=== PATIENT | male | born 1960 ===

== ENCOUNTER 2016-02-07 14:10 | Inpatient (IN) | payer MEDICARE, OTHER ==
--- NOTE | 2016-02-07 18:33 | NUR ---
Observations from [id number] Pt arrived via EMS and was escorted to the unit on a stretcher in restraints at 1630. EMS noted he can get escalate very quickly so be sure to stay aware of that when in his vicinity. He verbally contracted for safety for himself and others so we let him out of restraints but pt was not able to complete his admit. When orienting him to the unit, he mentioned he "hates doctors and medication but i hate injections the most". He was reassured that if he takes his meds and doesn't present as a harm to himself or others, we shouldn't have to give him a shot and he understood that if he wasn't compliant or harassing others there is a chance it could happen. Pt showered after some encouragement from staff, ate all of his dinner and fell asleep shortly after eating. Pt has been observed every 15 minutes as directed. Addendum: 02/07/16 at 2 by CHEO LAWSON Observations were from [id number]
[2016-02-07] MEDS ORDERED: DIVA250T12 PO (18:43)
[2016-02-07] MEDS ORDERED: HYDR-4003 PO (18:43)
[2016-02-07] MEDS ORDERED: DIVA500T14 PO (18:43)
[2016-02-07] MEDS ORDERED: KLO1T PO (18:43)
[2016-02-07] MEDS ORDERED: RISP4TAB2 PO (18:43)
[2016-02-07] MEDS ORDERED: TRAZ-118 PO (18:43)
[2016-02-07] MEDS ORDERED: Magnesium Hydroxide 10 mL Oral Concentration PO PRN (19:00)
[2016-02-07] MEDS ORDERED: Alum-Mag Hydrox-Simeth 30 mL Suspension PO PRN (19:00)
[2016-02-07] MEDS ORDERED: Benzocaine-Menthol Lozenge 2/Pkg PO PRN (19:00)
[2016-02-07] MEDS ORDERED: HYDROcodone-APAP 5-325 mg Tablet PO PRN ×2 (19:05→19:06)
[2016-02-07] MEDS: risperiDONE 2 mg Tablet PO SCH (20:57)
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
--- NOTE | 2016-02-08 06:00 | NUR ---
Pt was agitated and unsure of what is coming in terms of being JUDITH. Asleep at 2200. Pt observed every 15 minutes as ordered.
--- NOTE | 2016-02-08 06:24 | NUR ---
Nursing Note Noc Pt asleep upon arrival to unit, noted sleep time noted 2200. Pt had a total of 7.45 hr uninterrupted sleep. Q15 min safety check done per protocol Pt awoke 0545 requesting belongings. Pt given jeans and shirt. Pt currently drinking coffee and watching tv. WCTM safety, sleep, behavior
[2016-02-08] MEDS: risperiDONE 2 mg Tablet PO SCH ×2 (08:30→20:23)
[2016-02-08 13:18] VITALS: BP 153/87; PULSE 68; RESP 16
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
--- NOTE | 2016-02-08 18:16 | NUR ---
[facility] [employer]./ c.m. S.:"There is no cure fro mental illness. I'm not schizophrenic, I'm Bipolar! I don't need that experimental drugs! I'm scared of medications, I'm scared of this place." O.: met with pt. and MD together for initial interview. Pt. is JUDITH as a petition for revocation of 180 LRO. He had multiple hospitalizations in the past including [facility] multiple times. He has a long hx of mental health issues. He is connected with mental health services. He has an apartment where he can go after discharge from here. He described his mood as "good right now". He denied depression. He denied SI/HI, denied AH/VH as well as paranoid/delusional thoughts. He rated anxiety at 5/10. He was concerned about his meds because he didn't want to take any of them. He has hx of polysubstance abuse. He is drinking "red wine every week" and using mj occasionally. He had a hard time following a conversation. He was trying to negotiate his meds with MD. A.: pt. is cooperative, easily frustrated and angry, scattered, unpredictable. P.: monitor behavior, encourage pt. to take meds, provide safety in the unit; follow care plan.
--- NOTE | 2016-02-08 18:44 | NUR ---
[id number]. nurs. S: "I don't have to have any injections do I"....It's against the constitution to force someone to take medication when they don't need it....I need some milk should be able to get milk" O: Pt walking length of squires, "for exercise, it's not pacing " and getting meals and wanting additional snacks. Pt has maintained even mood with some expressed PI re his hospitalization and fears re. being poisoned with medication. Pt not interacting particularly with peers and only sometimes with staff. P:JASMYN
--- NOTE | 2016-02-08 19:16 | NUR ---
Observations 0700 to 1900 Pt maintained behavioral control throughout the shift. Pt is flat, childlike, paranoid, disorganized. Pt is very paranoid about medication, "you're doing tests on me!" Pt spent the majority of shift pacing hallway. Pt is very hungry and needed, very fixated on getting milk from fridge throughout day. Pt could not participate in community activities or effectively interact with peers.Pt is redirectable. Pt ate 100% of meals and was observed every 15 minutes as ordered.
--- NOTE | 2016-02-09 04:53 | NUR ---
Observations from [id number] Pt is paranoid, delusional and childish. Pt continues to pace the unit in his free time and is still fixating on how much he hates doctors and trust accounts supervisor and seems very preoccupied by thoughts about how they are "using me". During wrap up group, pt stated that he feels like "a stray dog who has found his home". Pt rated mood 9/10 and anxiety 0/10 but was very hyperverbal and disorganized when talking. Pt was observed asleep at 2200 and stayed asleep until 0400 when he woke up requesting laundry. He went back t bed shortly and has been observed every 15 minutes as directed.
--- NOTE | 2016-02-09 05:43 | NUR ---
Nursing Noc Pt cooperative with staff and tolerant of others. Delusional and paranoid thought content. Taking scheduled mediations as ordered. Pt noted to sleep six plus hours this shift then pacing unit quietly. Continue to monitor mood behavior and emotional state, Q15 minute safety checks performed as ordered.
--- NOTE | 2016-02-09 14:53 | PCM.PNPSY ---
Subjective Date of Service Feb 09, 2016 Subjective The patient was again quite irritated regarding treatment and being diagnosed with a mental illness. Patient was less than a foot away from this creative services writer describing all those who had wronged him, in particular attorneys and doctors. He iterated that he would not take Depakote or increase Risperdal at this time. We discussed that according to [facility] report, he had been on Depakote and Risperdal on most of his civil and forensic admissions, but the patient then became irritated stating that he was not admitted on a criminal charge and prior charges should not be brought up. We further discussed that if he were held in the hospital after court, he would need to be increased on Risperdal and take Depakote to help in his recovery. Sleep: 7.75+ hours Appetite: good Suicidal and homicidal ideation: none expressed Auditory hallucinations/Visual hallucinations: none expressed Other Psychotic Symptoms: prominent paranoia Anxiety/Depression: unable to assess, but anxious about court/medications Current Medications Current Medications Clonazepam 2 mg HS PO Last administered on 02/08/16at 21:32; Admin Dose 2 MG; Start 02/07/16 at 21:00 Risperidone 2 mg BID PO Last administered on 02/07/16at 20:57; Admin Dose 2 MG; Start 02/07/16 at 20:30; Stop 02/08/16 at 12:24; Status DC Risperidone 3 mg HS PO Last administered on 02/08/16at 20:23; Admin Dose 3 MG; Start 02/08/16 at 21:00 Mental Status Exam Appearance: Unkept Attitude: Uncooperative, Hostile/Threatening Behavior: Distractible Affect: Labile Mood: Irritable Thought Process/Associations: Tangential, Circumstantial Speech Production: Abundant Speech Rate: Pressured Speech Articulation: Other (mild dysarthria) Thought Content: Suspicious, Perseveration Danger to Self/Suicidal Ideati: None Danger to Others: None Consciousness: Alert Orientation: Person, Place, Date, Situation Memory: Grossly Intact Attention/Concentration & Cogn: Impaired Insight: Limited Judgement: Poor Mental Health Plan The patient is a 55-year-old male with a long history of mental health who reports a diagnosis of bipolar disorder, although his cognitive impairment would suggest schizoaffective disorder, bipolar type, and this appears to be the diagnosis from [facility]. The patient has reported that he has been refusing Depakote and has not been taking risperidone as prescribed. Unfortunately there is no Depakote level from the emergency department to verify this assertion one way or the other. The patient at this time is unwilling to take Depakote and is somewhat irritable and aggressive with staff the previous day regarding medication. The patient will likely require establishing rapport with staff before Depakote can be introduced and risperidone titrated back to 4 mg. At the current time he is agreeable to taking 3 mg. He still is not willing to take Depakote. Given his volatility, pressuring him regarding this would likely be counterproductive. [place] I: 1. Schizoaffective disorder, bipolar type, versus bipolar disorder, manic, with psychotic features. 2. Amphetamine use disorder, in remission. 3. Alcohol use disorder. [place] II: Deferred. [place] III: Subungual pedal fungal infection. [place] IV: Moderate with chronic mental illness, difficulties with housing and mental health team. [place] V: Global Assessment of Functioning of 25. Medications Medications to address General Physical Health Risperdal 3mg po nightly Clonazepam 2mg po nighlty Trazodone 100mg po nightly PRN insomnia Treatments 1. The patient was restarted on risperidone. He was initially placed on 2 mg twice daily but was unwilling to take this dose. He did eventually agree to take 3 mg at bedtime. 2. The patient was unwilling to take Depakote, but available records indicate this is likely an important part of his stabilization. 3. The patient will be offered Klonopin during the day as needed and 2 mg at bedtime. 4. Trazodone 100mg po nightly PRN insomnia 5. The patient will be encouraged to participate in group and milieu therapy. 6. The patient is not currently reporting suicidal ideation and his behavior is in adequate control such that a one-to-one is not indicated for behavioral management. 7. The patient will need to be assessed for potential revocation, particularly if the patient continues to refuse the addition of Depakote. 8. Anticipated length of stay is over two weeks. Curt Mccann MD Feb 09, 2016 14:53
--- NOTE | 2016-02-09 15:05 | NUR ---
[employer]./ c.m. S.:"Patient and doctor relationship has to be friendly... I'm in a good mood today. I don't want to take experimental drugs." O.: met with pt. and MD together. Pt. "slept really good" last night. He denied SI/HI. He denied depression. He couldn't tell if he had AH/VH or not. He was trying to negotiate meds with MD. He didn't want to take Depakote. He didn't want to hear about his meds from his last hospitalization at [facility]. He was standing very close to MD with his arms stretched aside and shaking. He didn't want to listen to MD answers but continued talking over him. Pt. was in and out of his room mostly keeping t himself. He is concerned about pending court hearing on Wednesday next week. A.: pt. is isolative, easily agitated, unpredictable in his behavior. He has poor personal boundaries and pressured speech. P.: monitor behavior, provide safety in the unit, follow care plan.
[2016-02-09 17:21] VITALS: BP 148/86; PULSE 71; RESP 18
--- NOTE | 2016-02-09 17:56 | NUR ---
[facility] Day Shift Pt maintained behavioral control throughout the shift. Pt affect appears mostly flat, somewhat brighter when engaged with staff and peers. Pt spends most of the AM resting in his room, but is more active on the unit in the afternoon/evening. Pt is appropriate with staff and peers when active on the unit. Pt appears preoccupied with his legal paperwork/status. Pt did not attend community meeting in the AM, but did participate actively in afternoon group activity. Pt attended all meals and ate approx 100% of all meals.
--- NOTE | 2016-02-09 19:45 | NUR ---
1899. nurs. S: " Treat me like a criminal ..I have rights under the constitution... need to see a hand box folder ,hand box folder, liar, so rich can't afford them... I don't want to take drugs, poison,... O: Pt has been perseverating on his rights related to being hospitalized and need for medication pt denying mental illness, pt focusing on JUDITH situation.. pressured and escalating when starts to discuss with Dr use of meds that have helped him in past. On unit pt in room or walking squires and focused on upcoming court hearing. Pt does remain behaviourally under control and mood stays mostly even, flat, with underlying tension and louder with delusional and PI in interaction. Pt denying any pxs with A or VHs ,denies depression or anxiety pxs or any SI. P:CNCP
[2016-02-09] MEDS: risperiDONE 2 mg Tablet PO SCH (20:53)
--- NOTE | 2016-02-10 04:54 | NUR ---
Nursing 7p-7a Pt visible out on unit walking hallway. He participated in evening group but became quickly agitated regarding "Doctors/ being forced to take meds/ having legal rights etc..." Paranoid that "food taste funny". Took his Risperdal. Pt slept from [id number] for a total of 7 hours. 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 Mood labile, behavior erratic, sleep adequate through the night.
--- NOTE | 2016-02-10 13:23 | PCM.PNPSY ---
Subjective Date of Service Feb 10, 2016 Subjective I spent 30 minutes both reviewing his treatment plan and providing supportive and educational psychotherapy. I spent more than 50% of the time counseling the patient. I reviewed the treatment plan with the patient and discussed options available including the potential risks, benefits and side effects. Rodolfo reports terrible reactions to Depakote. The Staff reports that he has been active and is participating well in one-to-one unit and group activities. He slept 7 hours. He denies medication side effects and minimizes symptoms of psychosis or depression. Deaf report that client's been very busy and he was quite hyperverbal during my session. However he was relatively easy to connect with in a one-to-one basis. He tended to be reassured when I told him I would try to have him have as much control of his medications as possible. Patient was able to identify his medications and what they were used to treat. Was willing to take Risperdal at the current dose. He appeared to understand the need for medications by the questions he asked during our discussion. Current Medications Current Medications Risperidone 3 mg HS PO Last administered on 02/09/16at 20:53; Admin Dose 3 MG; Start 02/08/16 at 21:00 Mental Status Exam Appearance: Neat/well groomed Attitude: Pleasant, Cooperative Behavior: Distractible Affect: Labile Mood: Expansive Thought Process/Associations: Tangential, Circumstantial Speech Production: Abundant Speech Rate: Pressured Speech Articulation: Other (mild dysarthria) Thought Content: Suspicious, Perseveration Danger to Self/Suicidal Ideati: None Danger to Others: None Consciousness: Alert Orientation: Person, Place, Date, Situation Memory: Grossly Intact Attention/Concentration & Cogn: Impaired Insight: Limited Judgement: Poor Mental Health Plan The patient is a 55-year-old male with a long history of mental illness who reports a diagnosis of bipolar disorder, although his cognitive impairment would suggest schizoaffective disorder, bipolar type, and this appears to be the diagnosis from [facility]. The patient has been refusing Depakote and prior to admission had not been taking risperidone as prescribed. The patient at this time is unwilling to take Depakote and is somewhat irritable and aggressive with staff the previous day regarding medication. The patient will likely require establishing rapport with staff before medications can be altered. The report from [facility] is that client did quite well on Depakote. It is possible that he does not like the sedating effect that he receives when he is on a mood stabilizer. [place] I: 1. Schizoaffective disorder, bipolar type, versus bipolar disorder, manic, with psychotic features. 2. Amphetamine use disorder, in remission. 3. Alcohol use disorder. [place] II: Deferred. [place] III: Subungual pedal fungal infection. [place] IV: Moderate with chronic mental illness, difficulties with housing and mental health team. [place] V: Global Assessment of Functioning of 35. Medications Medications to address General Physical Health Risperdal 3mg po nightly Clonazepam 2mg po nighlty Trazodone 100mg po nightly PRN insomnia Treatments 1. The patient is on risperidone. He did eventually agree to take 3 mg at bedtime. 2. The patient is unwilling to take Depakote, but available records indicate this is likely an important part of his stabilization. 3. The patient will be offered Klonopin during the day as needed and 2 mg at bedtime. 4. Trazodone 100mg po nightly PRN insomnia 5. The patient will be encouraged to participate in group and milieu therapy. 6. The patient is not currently reporting suicidal ideation and his behavior is in adequate control such that a one-to-one is not indicated for behavioral management. 7. The patient will need to be assessed for potential revocation, particularly if the patient continues to refuse the addition of Depakote. 8. Anticipated length of stay is over two weeks. Sincere Millan MD Feb 10, 2016 13:23
--- NOTE | 2016-02-10 14:12 | NUR ---
Nursing Note [id number] Behavior S/O: Pt superficially pleasant when talking with staff. Little interaction with peers. Pt has agitated look on face as he frequently paces on unit with forceful, quick steps. Speech is pressured, loud & tangential. Pt has little boundaries & interacts with staff standing only inches away. Pt went outside to patio with peers & staff. Pt d/n attended morning meeting today & didn't set any goals. A: Pt presents as hypomanic. P: Provide supportive environment. Monitor medications & effects.
--- NOTE | 2016-02-10 14:34 | NUR ---
Parcel Post Clerk./ c.m. S.:"Are you my outsole caser? Are you going to court with me? Will you help me in court?" O.: pt. was in and out of his room pacing in a squires and Dining room. He slept "ok" last night. He didn't want to take meds because they were "experimental poison". He was concerned about court. He denied SI/HI, denied AH/VH, denied depression. Finishing Area Operator spoke with Noel Powers, hospital liaison from [facility] ([phone]). Noel wanted to make sure that pt. would be prescribed Depakote because "this medication is the only one that keeps" pt. stable outside the hospital. He doesn't like it but he is functioning well on his own when he is taking it. Noel will call in the middle of the week to check on pt.'s progress. A.: pt. is cooperative, guarded, looks restless, has pressured speech and has poor boundaries. P.: monitor behavior, provide safety, encourage pt. to take meds; follow care plan.
[2016-02-10] MEDS: risperiDONE 2 mg Tablet PO SCH (20:28)
--- NOTE | 2016-02-10 21:45 | NUR ---
Nursing Note kinsey Pt up ambulating circles in squires way and milieu most of shift. Pt noted to be socializing with peers and staff. Pt appeared bright in conversation. Asked how he was doing and and if he needed anything Pt stated "Good I just need my dinner". Pt was compliant with HS meds and is currently in bed resting. Q15 min safety checks done per protocol, [facility] sleep, behavior, safety
--- NOTE | 2016-02-11 02:22 | NUR ---
Observations 1900 to 0700 Pt was up and down for most of the night. Pt shows signs of confusion and schizophrenia. Pt was polite. Pt words and sentences dont make sense all the time. Pt walked the halls for awhile between sleep in the morning. Pt first appeared asleep at 22:15 and was observed every 15 minutes through the night as directed.
--- NOTE | 2016-02-11 05:58 | NUR ---
Nursing note: manufacturing shift supervisor Patient observed to be awake from midnight to 0130 intermittently walking in hallway and in his room. Patient appears to be sleeping on subsequent safety checks during the remainder of the night.
[2016-02-11 10:02] VITALS: BP 151/83; PULSE 86; RESP 18
--- NOTE | 2016-02-11 11:20 | NUR ---
Maintenance Mechanic Technician./ c.m. S.:"I'm doing real good. I just had a good breakfast and it was a good treatment for me. So far I'm happy because I'm only on one medication. I'm not schizophrenic, I'm Bipolar, I don't need Depakote!" O.: met with pt. per his request. Pt. was concerned about court today. He was sure that he would have court today instead of tomorrow. He was "a little anxious about it because than county court judge will order me to take Depakote." He rated his anxiety at 2/10. He denied depression at this time, but he said "I'm kind of depressed because I haven't seen my blacking machine operator yet." He denied SI/HI, denied AH/VH. He slept "pretty good" last night. He couldn't keep his focus on a conversation. He showed the publications writer his court paper for a [address] in [place] where he had court date today at 8:00 am but he didn't want staff to fax a letter to court about his hospitalization here. "I want a warrant on my arrest because I want to go to a real court and present myself in front of a county court judge!" A.: pt. is cooperative, very restless, scattered in his thoughts, has pressured speech, intrusive at times and has poor boundaries. P.: monitor behavior, court tomorrow, monitor for safety; follow care plan.
--- NOTE | 2016-02-11 12:28 | PCM.PNPSY ---
Subjective Date of Service Feb 11, 2016 Subjective I spent 30 minutes both reviewing his treatment plan and providing supportive and educational psychotherapy. I spent more than 50% of the time counseling the patient. I reviewed the court assessed with the patient and discussed options . Rodolfo reiterated terrible reactions to Depakote. The Staff reports that he has been overly active on the unit but is participating . He slept 6 hours. He denies medication side effects and minimizes symptoms of psychosis or depression. Staff again report that client's been very busy and he was hyperverbal during my session. He was reassured when I told him I would try to have him have as much control of his medications as possible. Patient was able to identify his medications and what they were used to treat. Was willing to take Risperdal at the current dose. He appeared to understand the need for medications by the questions he asked during our discussion. Mental Status Exam Vital Signs Vital Signs Date Time Temp Pulse Resp B/P Pulse Ox O2 Delivery O2 Flow Rate FiO2 02/11/16 10:02 36.2 86 18 151/83 Appearance: Neat/well groomed Attitude: Pleasant, Cooperative Behavior: Distractible Affect: Labile Mood: Expansive Thought Process/Associations: Tangential, Circumstantial Speech Production: Abundant Speech Rate: Pressured Speech Articulation: Other (mild dysarthria) Thought Content: Suspicious, Perseveration Danger to Self/Suicidal Ideati: None Danger to Others: None Consciousness: Alert Orientation: Person, Place, Date, Situation Memory: Grossly Intact Attention/Concentration & Cogn: Impaired Insight: Limited Judgement: Poor Mental Health Plan The patient is a 55-year-old male with a long history of mental illness who reports a diagnosis of bipolar disorder, although his cognitive impairment would suggest schizoaffective disorder, bipolar type, and this appears to be the diagnosis from [facility]. The patient has been refusing Depakote and prior to admission had not been taking risperidone as prescribed. The patient at this time is unwilling to take Depakote and is somewhat irritable and aggressive with staff the previous day regarding medication. The patient will likely require establishing rapport with staff before medications can be altered. The report from [facility] is that client did quite well on Depakote. It is possible that he does not like the sedating effect that he receives when he is on a mood stabilizer. 02/11/2016 patient is showing slight improvement in impulse control but remains in a manic condition with delusional and hyperreligious thought. He continues to decline offers of Depakote or to increase his Risperdal. I have written an affidavit for a revocation of his 90 day LRA. He will have a chance to talk with his assistant attorney general in the morning and will go to court tomorrow. [place] I: 1. Schizoaffective disorder, bipolar type, versus bipolar disorder, manic, with psychotic features. 2. Amphetamine use disorder, in remission. 3. Alcohol use disorder. [place] II: Deferred. [place] III: Subungual pedal fungal infection. [place] IV: Moderate with chronic mental illness, difficulties with housing and mental health team. [place] V: Global Assessment of Functioning of 35. Medications Medications to address General Physical Health Risperdal 3mg po nightly Clonazepam 2mg po nighlty Trazodone 100mg po nightly PRN insomnia Treatments 1. The patient is on risperidone. He did eventually agree to take 3 mg at bedtime. 2. The patient is unwilling to take Depakote, but available records indicate this is likely an important part of his stabilization. 3. The patient will be offered Klonopin during the day as needed and 2 mg at bedtime. 4. Trazodone 100mg po nightly PRN insomnia 5. The patient will be encouraged to participate in group and milieu therapy. 6. The patient is not currently reporting suicidal ideation and his behavior is in adequate control such that a one-to-one is not indicated for behavioral management. 7. The patient will need to be assessed for potential revocation, particularly if the patient continues to refuse the addition of Depakote. 8. Anticipated length of stay is over two weeks. Court in the a.m. for a revocation of his 90 day LR Sincere Millan MD Feb 11, 2016 12:28
--- NOTE | 2016-02-11 13:07 | NUR ---
Nursing Note [id number] Behavior S/O: Pt anxious this morning thinking that he was going to court today. He was upset that he hadn't seen his risk compliance analyst yet. Even after explaining there was no court today, he was still worried about it. Pt tangential& rambling in conversation with slightly pressured speech. Pt asking to hold gun casing in his belongings. He said, "It's my good luck charm....I would never kill a rabbit....I don't think that's right to kill a rabbit for a good luck charm." Pt frequently pacing halls. Engaging with staff, but only interacts with peers occasionally. A: Pt appears hypomanic. P: Provide supportive environment. Monitor medications & effects.
--- NOTE | 2016-02-11 14:28 | NUR ---
Obs Dayshift Pt is slightly restless, doing a lot of walking/pacing on the unit. Pt is polite, good eye contact, engages well w/ peers and staff. Pt is often telling jokes, or poems that he wrote or memorized. Pt is often excited when staff takes him outside, likes to walk the patio. Pt participates in grps, often focused on jewish or politics. Pt is slightly worried about his cat, made some calls to people where he lives to check on his cat. Pt has good ADL's, Good meals. Pt stated that he is very happy because the medicine that he doesn't like he was told that he now doesn't have to take anymore. Pt is hopeful to go back to his apartment soon.
[2016-02-11] MEDS: risperiDONE 2 mg Tablet PO SCH (20:26)
--- NOTE | 2016-02-11 21:25 | NUR ---
Nursing Note Elysia Pt affect bright with good eye contact. Pt up for shift socializing and joking with peers and staff. Pt took HS risperidone and refused his Klonopin stating"If I cant fall asleep I'll come back and ask for it". Pt walking hallway and circles in milieu stated reason" All I do is sit all day Im trying to tire myself out so I can sleep tonight". No complaints or issues noted on shift and behaviors were controlled. Q15 min safety checks per protocol. Pt currently resting in room. [facility] sleep, behavior, safety
--- NOTE | 2016-02-12 02:34 | NUR ---
Observations 1900 to 0700 Pt was up and down for most of the night. Pt shows signs of confusion and schizophrenia. Pt was polite. Pt words and sentences dont make sense all the time. Pt first appeared asleep at 22:15 and was observed every 15 minutes through the night as directed.
--- NOTE | 2016-02-12 06:00 | NUR ---
Sleep 11p-7a Adequate sleep through the night with no noted distress or awakening per protocol checks. Total sleep 7+ hours.
[2016-02-12 11:39] VITALS: BP 145/76; PULSE 68
--- NOTE | 2016-02-12 12:22 | PCM.PNPSY ---
Subjective Date of Service Feb 12, 2016 Subjective I spent 75 minutes both reviewing his treatment plan and providing supportive and educational psychotherapy and I also testified in court regarding Matt' s revocation of his 180 day LRA. The coin machine supervisor signed an order for Matt to stay up until 14 days to reestablish mental competency. I spent more than 50% of the time counseling the patient. I reviewed the court assessed with the patient and discussed options . Rodolfo reiterated terrible reactions to Depakote. The Staff reports that he has been overly active on the unit but is participating . He slept 7 hours. He denies medication side effects and minimizes symptoms of raghav psychosis or depression. Staff again report that client's been very busy and he was hyperverbal during my session. He was reassured when I told him I would try to have him have as much control of his medications as possible. Patient was able to identify his medications and what they were used to treat. Was willing to take Risperdal at the current dose. He appeared to understand the need for medications by the questions he asked during our discussion. Mental Status Exam Vital Signs Vital Signs Date Time Temp Pulse Resp B/P Pulse Ox O2 Delivery O2 Flow Rate FiO2 02/12/16 11:39 36.0 68 145/76 Appearance: Neat/well groomed Attitude: Pleasant, Cooperative Behavior: Distractible Affect: Labile Mood: Expansive Thought Process/Associations: Tangential, Circumstantial Speech Production: Abundant Speech Rate: Pressured Speech Articulation: Other (mild dysarthria) Thought Content: Suspicious, Perseveration Danger to Self/Suicidal Ideati: None Danger to Others: None Consciousness: Alert Orientation: Person, Place, Date, Situation Memory: Grossly Intact Attention/Concentration & Cogn: Impaired Insight: Limited Judgement: Poor Mental Health Plan The patient is a 55-year-old male with a long history of mental illness who reports a diagnosis of bipolar disorder, although his cognitive impairment would suggest schizoaffective disorder, bipolar type, and this appears to be the diagnosis from [facility]. The patient has been refusing Depakote and prior to admission had not been taking risperidone as prescribed. The patient at this time is unwilling to take Depakote and is somewhat irritable and aggressive with staff the previous day regarding medication. The patient will likely require establishing rapport with staff before medications can be altered. The report from [facility] is that client did quite well on Depakote. It is possible that he does not like the sedating effect that he receives when he is on a mood stabilizer. 02/11/2016 patient is showing slight improvement in impulse control but remains in a manic condition with delusional and hyperreligious thought. He continues to decline offers of Depakote or to increase his Risperdal. I have written an affidavit for a revocation of his 90 day LRA. Rodolfo was committed to another 14 days on an inpatient unit by the commissioner this morning 02/12/2016. He was quite distractible with racing thoughts and bizarre statements when he testified in court. He is redirectable and has not been posturing in any type of aggressive manner while here on the unit. [place] I: 1. Schizoaffective disorder, bipolar type, versus bipolar disorder, manic, with psychotic features. 2. Amphetamine use disorder, in remission. 3. Alcohol use disorder. [place] II: Deferred. [place] III: Subungual pedal fungal infection. [place] IV: Moderate with chronic mental illness, difficulties with housing and mental health team. [place] V: Global Assessment of Functioning of 35. Medications Medications to address General Physical Health Risperdal 3mg po nightly Clonazepam 2mg po nighlty Trazodone 100mg po nightly PRN insomnia Treatments 1. The patient is on risperidone. He agrees to take 3 mg at bedtime. 2. The patient is unwilling to take Depakote, but available records indicate this is likely an important part of his stabilization. 3. The patient will be offered Klonopin during the day as needed and 2 mg at bedtime. 4. Trazodone 100mg po nightly PRN insomnia 5. The patient will be encouraged to participate in group and milieu therapy. 6. The patient is not currently reporting suicidal ideation and his behavior is in adequate control such that a one-to-one is not indicated for behavioral management. 7. The patient will need to be assessed for potential revocation, particularly if the patient continues to refuse the addition of Depakote. 8. Anticipated length of stay is over two weeks. Rodolfo is on 14 day modified Sincere Whitt MD Feb 12, 2016 12:21
--- NOTE | 2016-02-12 18:45 | NUR ---
Case Management/Counselor: S: "Can I call you Miss Humberto Holden?" O: Met with patient. Patient slept 7+ hours last night per staff. Patient denies S/I and H/I. He did not rate depression and anxiety. Patient paced up and down hallway because he stated, "I'm like a Marine because after I eat, I exercise." A: Patient is cooperative, labile, distractable, tangential, suspicious, poor judgment. P: Follow care plan, coordinate out-patient providers.
--- NOTE | 2016-02-12 18:59 | NUR ---
[id number]. nurs. S: "The Drs I had said I do well just on risperdal I was taking some depakote they increased it so I left it in the pill box and gave it back" O: Pt attended his court hearing and placed on LRO with up to 14 days in hospital. Pt continued to be quite pressured and becoming more stimulated by continued attention. For rest of day pt occupying himself with walking in squires for exercise and pleasant in passing . A: Pt not verbalizing any other concerns, has remained convinced that risperdal is sufficient to help him return to stable living at home and resistent to addition of depakote that has helped him have stable periods. P:CNCP
[2016-02-12] MEDS: risperiDONE 2 mg Tablet PO SCH (20:30)
--- NOTE | 2016-02-12 21:23 | NUR ---
Behavior Pt approached this RN and stated, "You are a modern Nazi". When asked why he made this type of statement he said, "Because you won't open the fridge." He then walked away. No further interaction. Compliant with medications. Currently in bed--appears to be sleeping. Will cont to monitor
--- NOTE | 2016-02-13 01:29 | NUR ---
Observations 1900 to 0700 Pt shows signs of confusion and schizophrenia. Pt was in his room for most of the night. Pt was polite. Pt words and sentences don't make sense all the time. Pt first appeared asleep at 21:30 and was observed every 15 minutes through the night as directed.
--- NOTE | 2016-02-13 05:58 | NUR ---
nursing, nights, 11-7 s- can i have a pen ? thank you. o- has appeared to sleep after 2129 to 424. has remained awake pacing for the most part and writing at times. assessed q 15 minutes. a- generally appropriate. no apparent distress. p- monitor behavior/emotional state, quality, times and amount of sleep, use and effect of medication. kristine
--- NOTE | 2016-02-13 11:35 | PCM.PNPSY ---
Subjective Date of Service Feb 13, 2016 Subjective I spent 30 minutes both reviewing his treatment plan and providing supportive and educational psychotherapy and I I spent more than 50% of the time counseling the patient. I reviewed the court assessed with the patient and discussed options . Rodolfo reported no adverse reactions to Depakote. He is agreeable to taking both low-dose Depakote and an increase in Risperdal. The Staff reports that he has been overly active on the unit but is participating . He slept 8.5 hours. He denies medication side effects and minimizes symptoms of raghav psychosis or depression. Staff again reported that he has been very busy and he was also hyperverbal hyper hoahaoism and delusional during my session. He was reassured when I told him I would try to have him have as much control of his medications as possible. Patient was able to identify his medications and what they were used to treat. Was willing to take Risperdal and Depakote at the current dose. He appeared to understand the need for medications by the questions he asked during our discussion. Current Medications Current Medications Divalproex Sodium 500 mg HS PO Last administered on 02/12/16at 20:30; Admin Dose 500 MG; Start 02/12/16 at 21:00 Risperidone 4 mg HS PO Last administered on 02/12/16at 20:30; Admin Dose 4 MG; Start 02/12/16 at 21:00 Mental Status Exam Appearance: Neat/well groomed Attitude: Pleasant, Cooperative Behavior: Distractible Affect: Labile Mood: Expansive Thought Process/Associations: Tangential, Circumstantial Speech Production: Abundant Speech Rate: Pressured Speech Articulation: Other (mild dysarthria) Thought Content: Suspicious, Perseveration Danger to Self/Suicidal Ideati: None Danger to Others: None Consciousness: Alert Orientation: Person, Place, Date, Situation Memory: Grossly Intact Attention/Concentration & Cogn: Impaired Insight: Limited Judgement: Poor Mental Health Plan The patient is a 55-year-old male with a long history of mental illness who reports a diagnosis of bipolar disorder, although his cognitive impairment would suggest schizoaffective disorder, bipolar type, and this appears to be the diagnosis from [facility]. The patient has been refusing Depakote and prior to admission had not been taking risperidone as prescribed. The patient at this time is unwilling to take Depakote and is somewhat irritable and aggressive with staff the previous day regarding medication. The patient will likely require establishing rapport with staff before medications can be altered. The report from [facility] is that client did quite well on Depakote. It is possible that he does not like the sedating effect that he receives when he is on a mood stabilizer. 02/11/2016 patient is showing slight improvement in impulse control but remains in a manic condition with delusional and hyperreligious thought. He continues to decline offers of Depakote or to increase his Risperdal. I have written an affidavit for a revocation of his 90 day LRA. Rodolfo was committed to another 14 days on an inpatient unit by the commissioner this morning 02/12/2016. He was quite distractible with racing thoughts and bizarre statements when he testified in court. He is redirectable and has not been posturing in any type of aggressive manner while here on the unit. He was quite elevated in mood and pressured and thought today. He was redirectable and is willing to continue his meds in current treatment plan. [place] I: 1. Schizoaffective disorder, bipolar type, versus bipolar disorder, manic, with psychotic features. 2. Amphetamine use disorder, in remission. 3. Alcohol use disorder. [place] II: Deferred. [place] III: Subungual pedal fungal infection. [place] IV: Moderate with chronic mental illness, difficulties with housing and mental health team. [place] V: Global Assessment of Functioning of 35. Medications Medications to address General Physical Health Risperdal 3mg po nightly Clonazepam 2mg po nighlty Trazodone 100mg po nightly PRN insomnia Treatments 1. The patient is on risperidone at 4 mg at bedtime. 2. The patient is taking Depakote at 500 at bedtime 3. The patient will be offered Klonopin during the day as needed and 2 mg at bedtime. 4. Trazodone 100mg po nightly PRN insomnia 5. The patient will be encouraged to participate in group and milieu therapy. 6. The patient is not currently reporting suicidal ideation and his behavior is in adequate control such that a one-to-one is not indicated for behavioral management. 7. The patient will need to be assessed for potential revocation, particularly if the patient continues to refuse the addition of Depakote. 8. Anticipated length of stay is over two weeks. Rodolfo is on 14 day modified Sincere Whitt MD Feb 13, 2016 11:35
[2016-02-13 17:44] VITALS: BP 138/82; PULSE 71; RESP 16
--- NOTE | 2016-02-13 18:12 | NUR ---
[facility] Day Shift Pt maintained behavioral control throughout the shift. Pt affect appears mostly flat, somewhat brighter when engaged with staff and peers. Pt spends most of the shift pacing the unit or resting/sleeping in his room. Pt is appropriate with staff and peers when active on the unit. Pt continues to appear easily agitated when discussing politics and world news, but is redirectable. Pt attended community meeting in the AM. Pt continues to frequently request time on the patio. Pt attended all meals and ate approx 100% of all meals.
--- NOTE | 2016-02-13 18:40 | NUR ---
Case Management/Counselor: S: "The doctor is trying to say I'm schizophrenic. I need some more fixadent for my dentures please." O: Met with patient. Patient slept 8.75 hours last night per staff. Patient denies S/I and H/I. He denies auditory and visual hallucinations. Depression is 0/10 and anxiety is 0/10. When asked his mood, patient stated, "Good." A: Patient is cooperative, labile, pleasant, distractable, tangential, suspicious, poor judgment. P: Follow care plan, coordinate out-patient providers.
--- NOTE | 2016-02-13 18:58 | NUR ---
[id number]. nurs. S: "I am taking it easy, resting more, to be honest with you I am a bit bummed out that I have to be here for Xmas" [place], when I get back I will turn myself in like I always do they know me down there.... O: Pt quieter over day, less pacing, out for meals, not seeking interaction, but willing to describe his concerns re. having to take meds that he does not want to take being violation of his rights. Pt does feel that he is isolated in this [facility] away from community that have known him well over many years. Pt stating that he is going to try and get through his time here until he can return home with as little frustration as possible hence periods taken resting Pt continues to do some rapid walking in squires in morning for exercise. A: pt still perseverating on his rights not to take some of prescribed meds and adamant that he can manage in community well without these med depakote in particular. P:IQRAP
[2016-02-13] MEDS: risperiDONE 2 mg Tablet PO SCH (20:02)
--- NOTE | 2016-02-14 05:23 | NUR ---
nursing, nights, 11-7 s- are my cloths done ? i went back to sleep. how about my cloths now ? o- has appeared to sleep after 2129. up briefly at 0020. up at 0430 and is pacing the squires. assessed q 15 minutes. a- pleasant and generally appropriate. no apparent distress. p- monitor behavior/emotional state, quality, times and amount of sleep, use and effect of medication. kristine
--- NOTE | 2016-02-14 05:44 | NUR ---
Pt walking halls when awake. Asleep [id number]. Pt observed every 15 minutes as ordered.
[2016-02-14 09:52] VITALS: BP 119/84; PULSE 68; RESP 20
--- NOTE | 2016-02-14 12:20 | PCM.PNPSY ---
Subjective Date of Service Feb 14, 2016 Subjective I spent 20 minutes both reviewing his treatment plan and providing supportive and educational psychotherapy and I I spent more than 50% of the time counseling the patient. Rodolfo has been taking both Risperdal and Depakote as prescribed and he reported no adverse reactions to Depakote. He is agreeable to taking both . The Staff reports that he has she needed to be overly active on the unit but is participating . He is quite intrusive but is redirectable. He slept 7 hours. He denies medication side effects and minimizes symptoms of raghav psychosis or depression. Staff again reported that he has been very busy and he was also hyperverbal hyper evangelical and delusional during my session. Current Medications Current Medications Divalproex Sodium 500 mg HS PO Last administered on 02/13/16at 20:03; Admin Dose 500 MG; Start 02/12/16 at 21:00 Risperidone 4 mg HS PO Last administered on 02/13/16at 20:02; Admin Dose 4 MG; Start 02/12/16 at 21:00 Mental Status Exam Vital Signs Vital Signs Date Time Temp Pulse Resp B/P Pulse Ox O2 Delivery O2 Flow Rate FiO2 02/14/16 09:52 36.4 68 20 119/84 Appearance: Neat/well groomed Attitude: Pleasant, Cooperative Behavior: Distractible Affect: Labile Mood: Expansive Thought Process/Associations: Tangential, Circumstantial Speech Production: Abundant Speech Rate: Pressured Speech Articulation: Other (mild dysarthria) Thought Content: Suspicious, Perseveration Danger to Self/Suicidal Ideati: None Danger to Others: None Consciousness: Alert Orientation: Person, Place, Date, Situation Memory: Grossly Intact Attention/Concentration & Cogn: Impaired Insight: Limited Judgement: Poor Mental Health Plan The patient is a 55-year-old male with a long history of mental illness who reports a diagnosis of bipolar disorder, although his cognitive impairment would suggest schizoaffective disorder, bipolar type, and this appears to be the diagnosis from [facility]. The patient has been refusing Depakote and prior to admission had not been taking risperidone as prescribed. The patient at this time is unwilling to take Depakote and is somewhat irritable and aggressive with staff the previous day regarding medication. The patient will likely require establishing rapport with staff before medications can be altered. The report from [facility] is that client did quite well on Depakote. It is possible that he does not like the sedating effect that he receives when he is on a mood stabilizer. 02/11/2016 patient is showing slight improvement in impulse control but remains in a manic condition with delusional and hyperreligious thought. He continues to decline offers of Depakote or to increase his Risperdal. I have written an affidavit for a revocation of his 90 day LRA. Rodolfo was committed to another 14 days on an inpatient unit by the commissioner this morning 02/12/2016. He was quite distractible with racing thoughts and bizarre statements when he testified in court. He is redirectable and has not been posturing in any type of aggressive manner while here on the unit. He was quite elevated in mood and pressured and thought today. He was redirectable and is willing to continue his meds in current treatment plan. Rodolfo continues to make slow but steady. Improvement in mood stability and thought organization. [place] I: 1. Schizoaffective disorder, bipolar type, versus bipolar disorder, manic, with psychotic features. 2. Amphetamine use disorder, in remission. 3. Alcohol use disorder. [place] II: Deferred. [place] III: Subungual pedal fungal infection. [place] IV: Moderate with chronic mental illness, difficulties with housing and mental health team. [place] V: Global Assessment of Functioning of 35. Medications Medications to address General Physical Health Risperdal 3mg po nightly Clonazepam 2mg po nighlty Trazodone 100mg po nightly PRN insomnia Treatments 1. The patient is on risperidone at 4 mg at bedtime. 2. The patient is taking Depakote at 500 at bedtime 3. The patient will be offered Klonopin during the day as needed and 2 mg at bedtime. 4. Trazodone 100mg po nightly PRN insomnia 5. The patient will be encouraged to participate in group and milieu therapy. 6. The patient is not currently reporting suicidal ideation and his behavior is in adequate control such that a one-to-one is not indicated for behavioral management. 7. The patient will need to be assessed for potential revocation, particularly if the patient continues to refuse the addition of Depakote. 8. Anticipated length of stay is two weeks. Rodolfo is on 14 day modified Sincere Whitt MD Feb 14, 2016 12:20
--- NOTE | 2016-02-14 15:23 | NUR ---
Pt spent part of morning up walking circles in hallway. pt had one anger outburst r/t not liking breakfast and made comments about punching someone. Pt didn't have morning meds scheduled and no PRN's given. Pt currently sleeping in room. Q15 min safety checks per protocol, [facility] sleep, behavior, safety
--- NOTE | 2016-02-14 16:45 | NUR ---
Case Management/Counselor: S: "You people get extra pay for being here on the holiday working with people like us." O: Met with patient and psychiatrist. Patient slept 7 hours last night per staff. Patient denies S/I and H/I. He denies auditory and visual hallucinations. Depression is 0/10 and anxiety is 6/10. When asked his mood, patient stated, "Okay." A: Patient is cooperative, labile, pleasant, tangential, pressured speech, suspicious, limited insight, poor judgment. P: Follow care plan, coordinate out-patient providers.
--- NOTE | 2016-02-14 20:43 | NUR ---
Observations 0900 to 2130 Pt affect was cooperative, friendly and low brown. Pt speech and eye contact was good. Pt was minimally social with staff and select peers when approached. Pt refused to attend group and unit activities. Pt paced the hallway and/or rested in his room. Pt maintained behavior throughout the shift. Pt attended meals in the D.R. and ate 100% of breakfast, 100% of lunch and 100% of dinner. Pt ate snack. Pt was observed every 15 minutes throughout the shift as ordered.
[2016-02-14] MEDS: risperiDONE 2 mg Tablet PO SCH (20:59)
--- NOTE | 2016-02-14 22:56 | NUR ---
Nurses Note Evening Patient has been pleasant and cooperative upon approach. He has not been social with peers but does eat in the dining room with peers. Patient paces the unit but is easily engaged. He refused PRN Klonopin at but has been medication compliant overall. Will maintain q 15min. checks for safety and support. Addendum: 02/14/16 at 2303 by EVARISTO VALDEZ RN Amended: Links added.
--- NOTE | 2016-02-15 05:24 | NUR ---
Pt out walking unit when awake. Asleep [id number]. Pt observed every 15 minutes as ordered.
--- NOTE | 2016-02-15 05:33 | NUR ---
nursing, nights, 11-7 s/o- has appeared to sleep after 2144 to 399. currently alternating between pacing the squires and lying in bed. assessed q 15 minutes. a- generally appropriate, no apparent distress. p- monitor behavior/emotional state, quality, times and amount of sleep, use and effect of medication. kristine
--- NOTE | 2016-02-15 12:25 | PCM.PNPSY ---
Subjective Date of Service Feb 15, 2016 Subjective I spent 20 minutes both reviewing his treatment plan and providing supportive and educational psychotherapy and I spent more than 50% of the time counseling the patient. Rodolfo has been taking both Risperdal and Depakote as prescribed and he reported no adverse reactions to Depakote. He is agreeable to taking both as highly concerned that we will change these medication doses. The Staff reports that he has been overly active on the unit but is participating . He remains intrusive but is redirectable. He slept 6.25 hours. He denies medication side effects and minimizes symptoms of raghav psychosis or depression. Staff again reported that he has been very busy and he was also hyperverbal hyper tenriism and delusional during my session. Mental Status Exam Appearance: Neat/well groomed Attitude: Pleasant, Cooperative Behavior: Distractible Affect: Labile Mood: Expansive Thought Process/Associations: Tangential, Circumstantial Speech Production: Abundant Speech Rate: Pressured Speech Articulation: Other (mild dysarthria) Thought Content: Suspicious, Perseveration Danger to Self/Suicidal Ideati: None Danger to Others: None Consciousness: Alert Orientation: Person, Place, Date, Situation Memory: Grossly Intact Attention/Concentration & Cogn: Impaired Insight: Limited Judgement: Poor Mental Health Plan The patient is a 55-year-old male with a long history of mental illness who reports a diagnosis of bipolar disorder, although his cognitive impairment would suggest schizoaffective disorder, bipolar type, and this appears to be the diagnosis from [facility]. The patient has been refusing Depakote and prior to admission had not been taking risperidone as prescribed. The patient at this time is unwilling to take Depakote and is somewhat irritable and aggressive with staff the previous day regarding medication. The patient will likely require establishing rapport with staff before medications can be altered. The report from [facility] is that client did quite well on Depakote. It is possible that he does not like the sedating effect that he receives when he is on a mood stabilizer. 02/11/2016 patient is showing slight improvement in impulse control but remains in a manic condition with delusional and hyperreligious thought. He continues to decline offers of Depakote or to increase his Risperdal. I have written an affidavit for a revocation of his 90 day LRA. Rodolfo was committed to another 14 days on an inpatient unit by the commissioner this morning 02/12/2016. He was quite distractible with racing thoughts and bizarre statements when he testified in court. He is redirectable and has not been posturing in any type of aggressive manner while here on the unit. He was quite elevated in mood and pressured and thought today. He was redirectable and is willing to continue his meds in current treatment plan. Rodolfo continues to make slow but steady. Improvement in mood stability and thought organization. [place] I: 1. Schizoaffective disorder, bipolar type, versus bipolar disorder, manic, with psychotic features. 2. Amphetamine use disorder, in remission. 3. Alcohol use disorder. [place] II: Deferred. [place] III: Subungual pedal fungal infection. [place] IV: Moderate with chronic mental illness, difficulties with housing and mental health team. [place] V: Global Assessment of Functioning of 35. Medications Medications to address General Physical Health Risperdal 3mg po nightly Clonazepam 2mg po nighlty Trazodone 100mg po nightly PRN insomnia Treatments 1. The patient is on risperidone at 4 mg at bedtime. 2. The patient is taking Depakote at 500 at bedtime 3. The patient will be offered Klonopin during the day as needed and 2 mg at bedtime. 4. Trazodone 100mg po nightly PRN insomnia 5. The patient will be encouraged to participate in group and milieu therapy. 6. The patient is not currently reporting suicidal ideation and his behavior is in adequate control such that a one-to-one is not indicated for behavioral management. 7. The patient will need to be assessed for potential revocation, particularly if the patient continues to refuse the addition of Depakote. 8. Anticipated length of stay is two weeks. Rodolfo is on 14 day modified Sincere Whitt MD Feb 15, 2016 12:25
--- NOTE | 2016-02-15 15:49 | NUR ---
Welder Tack./ c.m. S.:"Will I go home in 2 weeks? My mood is better and I'm sleeping better without my Klonopin." O.: met with pt. to discuss his concerns. He was anxious about his future. He wanted to make sure that he won't stay long here. He slept "well" last night and he didn't want to take "any extra medications". He denied SI/HI, denied AH/VH or paranoid/delusional thoughts. He said that he felt depressed only because he is here. He felt anxious only when he was thinking about his future. He was pacing a squires on and off since quarter inspector. He had a hard time following a conversation. He was talking about multiple subjects at once. A.: pt. is cooperative, isolative, intrusive, scattered in his thoughts, has pressured speech. He has poor insight and poor judgement. P.: monitor behavior, monitor meds intake, provide safety in the unit; follow care plan.
[2016-02-15 16:20] VITALS: BP 156/81; PULSE 67; RESP 20
--- NOTE | 2016-02-15 16:46 | NUR ---
Nursing Dayshift: S: "I never hear voices. I'm bipolar and I never hear voices." O: Patient denies hallucinations per above. Also denies anxiety, depression, and harmful thoughts. Has been ambulating the squires often this shift. Very talkative with some pressured affect. Talked about "my 1st amendment rights to blow off steam when my buttons are pushed." Good appetite at meals. Approachable. Not much interaction with peers. A: Pressured. Busy. P: CPOC. Monitor mood and behavior. Addendum: 02/15/16 at 1701 by JOSÉ PHELAN RN Amended: Links added.
--- NOTE | 2016-02-15 19:08 | NUR ---
Observations 0900 to 2130 Pt affect was isolative, cooperative, friendly and low brown. Pt speech and eye contact was ok. Pt was minimally social with staff and select peers when approached. Pt refused to attend group and unit activities. Pt paced the hallway and/or rested in his room. Pt maintained behavior throughout the shift. Pt attended meals in the D.R. and ate 100% of breakfast, 100% of lunch and 100% of dinner. Pt ate snack. Pt was observed every 15 minutes throughout the shift as ordered.
[2016-02-15] MEDS: risperiDONE 2 mg Tablet PO SCH (20:05)
--- NOTE | 2016-02-16 05:34 | NUR ---
nursing, nights, 11-7 s/o- has appeared to sleep after 2100 during q 15 minute assessments. a- no apparent distress. p- monitor behavior/emotional state, quality, times and amount of sleep, use and effect of medication. kristine
--- NOTE | 2016-02-16 06:12 | NUR ---
Pt walking halls when up. Asleep at 2100. Pt observed every 15 minutes as ordered.
[2016-02-16 08:13] VITALS: BP 143/89; PULSE 82; RESP 16
--- NOTE | 2016-02-16 11:44 | PCM.PNPSY ---
Subjective Date of Service Feb 16, 2016 Subjective I spent 20 minutes both reviewing his treatment plan and providing supportive and educational psychotherapy . Rodolfo has been taking both Risperdal and Depakote as prescribed and he reported no adverse reactions to Depakote. He is agreeable to taking both but is continuing to be highly concerned that we will change these medication doses. The Staff reports that he has been overly active on the unit (ambulating the squires but not interacting, isolating, cooperative and friendly,) He remains intrusive but is redirectable. He slept 8.5 hours. He denies medication side effects and minimizes symptoms of raghav psychosis or depression. Mental Status Exam Appearance: Neat/well groomed Attitude: Pleasant, Cooperative Behavior: Distractible Affect: Labile Mood: Expansive Thought Process/Associations: Tangential, Circumstantial Speech Production: Abundant Speech Rate: Pressured Speech Articulation: Other (mild dysarthria) Thought Content: Suspicious, Perseveration Danger to Self/Suicidal Ideati: None Danger to Others: None Consciousness: Alert Orientation: Person, Place, Date, Situation Memory: Grossly Intact Attention/Concentration & Cogn: Impaired Insight: Limited Judgement: Poor Mental Health Plan The patient is a 55-year-old male with a long history of mental illness who reports a diagnosis of bipolar disorder, although his cognitive impairment would suggest schizoaffective disorder, bipolar type, and this appears to be the diagnosis from [facility]. The patient has been refusing Depakote and prior to admission had not been taking risperidone as prescribed. The patient at this time is unwilling to take Depakote and is somewhat irritable and aggressive with staff the previous day regarding medication. The patient will likely require establishing rapport with staff before medications can be altered. The report from [facility] is that client did quite well on Depakote. It is possible that he does not like the sedating effect that he receives when he is on a mood stabilizer. 02/11/2016 patient is showing slight improvement in impulse control but remains in a manic condition with delusional and hyperreligious thought. He continues to decline offers of Depakote or to increase his Risperdal. I have written an affidavit for a revocation of his 90 day LRA. Rodolfo was committed to another 14 days on an inpatient unit by the commissioner this morning 02/12/2016. He was quite distractible with racing thoughts and bizarre statements when he testified in court. He is redirectable and has not been posturing in any type of aggressive manner while here on the unit. He was quite elevated in mood and pressured and thought today. He was redirectable and is willing to continue his meds in current treatment plan. Rodolfo continues to make slow but steady. Improvement in mood stability and thought organization. [place] I: 1. Schizoaffective disorder, bipolar type, versus bipolar disorder, manic, with psychotic features. 2. Amphetamine use disorder, in remission. 3. Alcohol use disorder. [place] II: Deferred. [place] III: Subungual pedal fungal infection. [place] IV: Moderate with chronic mental illness, difficulties with housing and mental health team. [place] V: Global Assessment of Functioning of 35. Treatments 1. The patient is on risperidone at 4 mg at bedtime. 2. The patient is taking Depakote at 500 at bedtime 3. The patient will be offered Klonopin during the day as needed and 2 mg at bedtime. 4. Trazodone 100mg po nightly PRN insomnia 5. The patient will be encouraged to participate in group and milieu therapy. 6. The patient is not currently reporting suicidal ideation and his behavior is in adequate control such that a one-to-one is not indicated for behavioral management. 7. The patient will need to be assessed for potential revocation, particularly if the patient continues to refuse the addition of Depakote. 8. Anticipated length of stay is two weeks. Rodolfo is on 14 day modified Sincere Whitt MD Feb 16, 2016 11:44
--- NOTE | 2016-02-16 13:35 | NUR ---
Bin Packer./ c.m. S.:"I'm not a schizophrenic. I don't hear voices. I'm non-violent offender. It is written everywhere in my documents. i don't need that poisoned medications! I think you are taking advantage of my Medicare!" O.: pt. was pacing a squires from time to time. He slept "pretty good last night." He denied SI/HI, denied AH/VH. He believed that he was given poisoned medications. He thought that if he "just drink tea with honey it will cure" his Bipolar. He denied depression. He was talking about multiple subjects. He told teletypewriter installer that he was 7 years clean from Methamphetamine. He was sure that MD told him to smoke cigarettes but he disagree with him. He was upset about a statement that his c.m. from [facility] made in a legal paper and he showed it to the teletypewriter installer. He believed that teletypewriter installer was working "for a pharmaceutical company" and was "trying to push medications" in him. A.: pt. is cooperative, isolative, very scattered in his thoughts, internally preoccupied, paranoid and delusional. He has pressured speech and intense eye contact. P.: monitor behavior, monitor meds intake, provide safety in the unit; follow care plan.
--- NOTE | 2016-02-16 14:57 | NUR ---
Nursing Dayshift: S: "Very little depression. I just got off the phone with my mom. We had a good talk." O: Patient rating depression per above. Anxiety "not much, maybe a 2". Denies harmful thoughts and hallucinations. Eating well at meals. Ambulating the squires much of the shift. Paced out on the patio after lunch for awhile. Easily approached. Smiles during interaction. Somewhat pressured in speech. No interaction with peers noted. A: Med compliant. Internally preoccupied. P: CPOC. Monitor mood and behavior. Addendum: 02/16/16 at 1507 by JOSÉ PHELAN RN Amended: Links added.
--- NOTE | 2016-02-16 18:23 | NUR ---
Observations 0700 to 1900 Pt affect and mood remained the same as previous days. Pt was pleasant, polite and cooperative. Pt speech and eye contact was ok. Pt was minimally social with staff and select peers when approached. Pt paced the hallway and/or rested in his room. Pt maintained behavior control throughout the shift. Pt went outside on patio with staff. Pt attended meals in the D.R. and ate 100% of breakfast, 100% of lunch and 100% of dinner. Pt ate snack. Pt talked on the phone. Pt was observed every 15 minutes throughout the shift as ordered.
[2016-02-16] MEDS: risperiDONE 2 mg Tablet PO SCH (20:31)
--- NOTE | 2016-02-16 21:50 | NUR ---
NURSING NOTE [id number] Orientation= x3 Mood= "how would you feel if you were locked up on [address]?" Affect= reserved, calm, appropriate in interactions w/staff Behavior= pt mostly kept to his room on evening shift, did come out to pace the halls for a bit and take his scheduled HS medications (though refused his Klonopin as he has for several days now) Thought processes= occasionally disorganized in conversation, tangential, some paranoia, remarks often about his frustration w/being detained here, denies SI/AUSTEN/KANCHAN/ Addendum: 02/17/16 at 0607 by AVA ANGELO RN As of 599, pt. appears to have slept 7.75 hrs and is still resting in bed w/eyes closed.
--- NOTE | 2016-02-17 00:22 | NUR ---
OBSERVATIONS 1900 TO 0700 Pt was isolative and remained in room and slept most of shift. Came out for a snack but did not participate in wrap-up group. Interaction with staff and peers was limited but appropriate with flat affect. Maintained Q15 safety check as directed. Addendum: 02/17/16 at 0435 by RAEGAN WORLEY [facility] Pt asleep at 2145, restless at times throughout the night but did not awaken.
--- NOTE | 2016-02-17 12:54 | NUR ---
Nursing: Day shift: S: i like to walk. I'm not happy about being here. I lost my freedom. I'm here against my will...I won't hurt anyone. P: Pt has been walking in squires for periods and lying on bed in room. Comes out for meals. He is now familiar with routine here and acts comfortable. Denies suicidality, or anxiety. Acknowledges "a little" for depression. Smiles readily but walks around with fairly flat facial expression. He is attending to own hygiene needs. A: Little insight into why he is in hospital. P: Observe closely between now and court on Wed. Addendum: 02/17/16 at 1312 by RICKEY RICO RN Amended: Links added.
--- NOTE | 2016-02-17 16:32 | NUR ---
Cabinet Installer./ c.m. S.:"I'm just Bipolar! I'm not schizophrenic, I'm not suicidal and I don't have hallucinations." O.: met with pt. and MD together. Pt. "slept alright" last night. He complained about Depakote and he was concerned that MD will raise a dose of that medication. He promised to take meds after discharge. He said that his "thinking is a little slower now." He denied SI/HI, denied AH/VH. He described his mood as "good". He rated depression at 1/10 and anxiety at 2-3/10. He asked for a different case liner at [facility] in [place]. He didn't like his last c.m. over there. He was walking a lot in a squires mostly keeping to himself. A.: pt. is cooperative, isolative, intrusive at times but easily redirected. P.: monitor behavior, monitor meds intake; follow care plan.
--- NOTE | 2016-02-17 17:44 | PCM.PNPSY ---
Subjective Date of Service Feb 17, 2016 Subjective The patient reports that Stash Tea was helpful in the past for insomnia and mood. He went on to talk about his "loss of freedom and dignity" and that he did not actually assault his research attorney or actually throw eggs at the office and that he is not "exercising my first amendment rights." He also requests 1% milk and cereal be available for snacks. The patient still expressed trepidation regarding the use of Depakote although he reports that he is bipolar and not schizoaffective disorder bipolar type. He denies side effects from medications at this time. He would prefer not to have pillowcase cutter Dawna and instead would rather have Noel Lott. He denied any racing thoughts. Sleep: 7.75 hours Appetite: "Good" Suicidal and homicidal ideation: Denies Auditory hallucinations/Visual hallucinations: Denies Other Psychotic Symptoms: Still perseverating on first amendment rights, mistreatment by psychiatrists, bilingual patient support caseworker, etc. Anxiety: -05/01 Depression: 03/03 Mental Status Exam Appearance: Neat/well groomed Attitude: Pleasant, Cooperative Behavior: Distractible Affect: Labile Mood: Dysthymic Thought Process/Associations: Tangential, Circumstantial Speech Production: Abundant Speech Rate: Pressured (but less so) Speech Articulation: Other (mild dysarthria) Thought Content: Suspicious, Perseveration Danger to Self/Suicidal Ideati: None Danger to Others: None Hallucinations: Auditory (Denies), Visual (Denies) Consciousness: Alert Orientation: Person, Place, Date, Situation Memory: Grossly Intact Estimate Intellectual Function: Average Attention/Concentration & Cogn: Impaired Insight: Limited Judgement: Poor Mental Health Plan The patient is a 55-year-old male with a long history of mental health who reports a diagnosis of bipolar disorder, although his cognitive impairment would suggest schizoaffective disorder, bipolar type, and this appears to be the diagnosis from [facility]. The patient has reported that he has been refusing Depakote and has not been taking risperidone as prescribed. Unfortunately there is no Depakote level from the emergency department to verify this assertion one way or the other. The patient at the time of admission was unwilling to take Depakote and was somewhat irritable and aggressive with staff the previous day regarding medication. The patient was increased to 4 mg of spared down and Depakote 500 mg was initiated. The patient expressed concern around blood draws and needles but understood the need for establishing a therapeutic level of his medication. He was aware that he was on a higher dose of Depakote in the past. [place] I: 1. Schizoaffective disorder, bipolar type, versus bipolar disorder, manic, with psychotic features. 2. Amphetamine use disorder, in remission. 3. Alcohol use disorder. [place] II: Deferred. [place] III: Subungual pedal fungal infection. [place] IV: Moderate with chronic mental illness, difficulties with housing and mental health team. [place] V: Global Assessment of Functioning of 35. Medications Risperidone 4 mg by mouth nightly Valproic acid 500 mg by mouth nightly Clonazepam 2 mg by mouth nightly, currently refusing. Treatments 1. The patient is provided with a safe environment with no additional precautions necessary at this time. 2. The patient is encouraged to participate in group and milieu therapy. 3. The patient will meet with the treatment team on a daily basis. 4. The patient will be continued on the above medications. 5. The patient will need to be assessed for potential revocation, particularly if the patient continues to refuse the addition of Depakote. 6. Anticipated length of stay is two weeks. 7. Valproic acid level, CBC, CMP in a.m. Curt Mccann MD Feb 17, 2016 17:43
--- NOTE | 2016-02-17 18:00 | NUR ---
Observations [id number] Pt was asleep upon start of shift. Pt spent the majority of the day pacing the halls. Mood appeared preoccupied and aggravated at times. Pt did not attend art group, but did go outside. Pt attended all meals, eating 100%. He expressed concerns regarding his meal portions, stating that his portions are "smaller then everyone elses." Pt also was frustrated at the fact that the unit ran out of milk mid-day. Pt spent the evening in bed. He was not social much with peers, keeping to himself. Pt was observed every 15 minutes of shift as directed.
[2016-02-17] MEDS: risperiDONE 2 mg Tablet PO SCH (20:15)
--- NOTE | 2016-02-18 02:20 | NUR ---
Observations 1900 to 0700 Pt shows signs of confusion and schizophrenia. Pt walked the halls for most of the night. Pt words and sentences don't make sense all the time. Pt first appeared asleep at 21:45 and was observed every 15 minutes through the night as directed.
--- NOTE | 2016-02-18 05:27 | NUR ---
Noc shift Pt appeared to be asleep throughout the night with n48yrhs checks. He showed no s/sx of distress.
[2016-02-18 08:46] LABS: BASOPHILS % (AUTO) 0.5 % (0-3); EOSINOPHILS % (AUTO) 4.5 % (0-5); MONOCYTES % (AUTO) 7.2 % (4-12); Mean Corpuscular Volume 86.3 fL (81-100); NEUTROPHILS % (AUTO) 56.5 % (40-74); Platelet Count 231 bil/L (150-400)
[2016-02-18 10:32] VITALS: BP 153/89; PULSE 65; RESP 17
--- NOTE | 2016-02-18 15:49 | PCM.PNPSY ---
Subjective Date of Service Feb 18, 2016 Subjective The patient reports that he feels that he should not have been detained as he was doing well upon admission to [facility]. He was reminded of his behavior prior to hospitalization and how he required intramuscular injections. We discussed that his Depakote level was 41 or sub-therapeutic, and we discussed long-acting Depakote; however, the patient preferred to increase Depakote to 750 mg at bedtime. He stated that he would like to be discharged early next week if possible. The [facility] No new medical issues or side effects. Sleep: 7.5 hours Appetite: "Good" feeling that others are getting more food than he is and questioning why the tray has his name on it. Suicidal and homicidal ideation: Denies Auditory hallucinations/Visual hallucinations: Denies Other Psychotic Symptoms: Still perseverating on first his rights, mistreatment by psychiatrists, correctional counselor/case manager, lack of food, etc. Mental Status Exam Vital Signs Vital Signs Date Time Temp Pulse Resp B/P Pulse Ox O2 Delivery O2 Flow Rate FiO2 02/18/16 10:32 35.4 65 17 153/89 Appearance: Neat/well groomed Attitude: Cooperative Behavior: Other (overly concerned with injustices. Patient still speaking to this telegraphic typewriter repairer approximately 1-1.5 feet away.) Affect: Labile (but improving) Mood: Dysthymic Thought Process/Associations: Tangential, Circumstantial Speech Production: Abundant Speech Rate: Pressured (mildly) Speech Articulation: Normal Thought Content: Suspicious, Perseveration Danger to Self/Suicidal Ideati: None Danger to Others: None Hallucinations: Auditory (Denies), Visual (Denies) Consciousness: Alert Orientation: Person, Place, Date, Situation Memory: Grossly Intact Estimate Intellectual Function: Average Attention/Concentration & Cogn: Impaired Insight: Limited Judgement: Poor Result Diagram: 02/18/1682402/18/16824 Mental Health Plan The patient is a 55-year-old male with a long history of mental health who reports a diagnosis of bipolar disorder, although his cognitive impairment would suggest schizoaffective disorder, bipolar type, and this appears to be the diagnosis from [facility] and from [facility]. Review of [facility] discharge summary today indicates he did well on risperidone 4 mg Depakote 750 mg. On admission, the patient has reported that he has been refusing Depakote and has not been taking risperidone as prescribed. Unfortunately there is no Depakote level from the emergency department to verify this assertion one way or the other. The patient at the time of admission was unwilling to take Depakote and was somewhat irritable and aggressive with staff the previous day regarding medication. The patient was increased to 4 mg of risperidone and Depakote 500 mg was initiated. The patient expressed concern around blood draws and needles but understood the need for establishing a therapeutic level of his medication. He was aware that he was on a higher dose of Depakote in the past. His valproic acid blood level today is 41 and the patient agreed to increase his dose to 750 mg and recheck his blood work in 3-4 days. [place] I: 1. Schizoaffective disorder, bipolar type 2. Amphetamine use disorder, in remission. 3. Alcohol use disorder. [place] II: Deferred. [place] III: Subungual pedal fungal infection. [place] IV: Moderate with chronic mental illness, difficulties with housing and mental health team. [place] V: Global Assessment of Functioning of 35. Medications Risperidone 4 mg by mouth nightly Valproic acid 500 mg by mouth nightly Clonazepam 2 mg by mouth nightly, currently refusing. Treatments 1. The patient is provided with a safe environment with no additional precautions necessary at this time. 2. The patient is encouraged to participate in group and milieu therapy. 3. The patient will meet with the treatment team on a daily basis. 4. The patient will be continued on the above medications. 5. Depakote will be increased to 750 mg at bedtime. 6. The patient will need to be assessed for potential revocation. 7. Anticipated length of stay is two weeks. 8. Valproic acid level on 02/22/16 Curt Mccann MD Feb 18, 2016 15:49
--- NOTE | 2016-02-18 15:58 | NUR ---
Coater Smoking Pipe./ c.m. S.:"I'm doing alright... How come other people get bigger portions than me?" O.: met with pt. and MD together in pt.'s room. Pt. complained about meal's portion. He thought that he was given smaller portions than everybody else. He slept "ok" last night. He denied SI/HI, denied AH/VH, denied depression. He said that his anxiety was "just a little." He agreed to increase a dose of Depakote after some negotiations with . He wanted to talk to Noel, hospital liaison from [facility]. High School Football Coach left a message for Noel asking him to call back here and to talk to the pt. Pt. spent a lot of time walking in a squires or being in his room. A.: pt. is cooperative, isolative, pleasant, has poor boundaries at times. P.: monitor behavior, encourage pt. to take meds; follow care plan.
--- NOTE | 2016-02-18 16:00 | NUR ---
Nursing Note. Day shift: S: I get to go home next week (smiling). O: Rodolfo has been dressed neatly. He walks in the squires frequently "to get exercise". No complaints. No requests. No behavioral dyscontrol. Eating well. when not walking or eating, lies on bed resting, awake or asleep. A/P: continue to assess for effectiveness or current med regimen.
--- NOTE | 2016-02-18 18:17 | NUR ---
Observations [id number] Pt was asleep upon start of shift. Pt attended all meals, eating 100%. Pt again mentioned portion sizes of food, complaining that his portions were smaller then others. Pt walked the halls when not in his room. He was not observed interacting much with peers, but was friendly when approached. Pt enjoys going outside, and asked on a few occasions "Can we go out to the yard?". Pt was allowed to go outside as he enjoys walking and getting fresh air. Pt was observed every 15 minutes as directed.
[2016-02-18] MEDS: risperiDONE 2 mg Tablet PO SCH (20:39)
--- NOTE | 2016-02-18 22:15 | NUR ---
Nursing Note [id number] Pt up on unit upon arrival to unit. Pt friendly with staff and peers. Walking circles on floor, attended snack and took all HS meds except declined Klonopin. Pt rated anxiety 10, depression 2/ and denied SI. When asked about hallucinations Pt became upset and stated "Im tired of being used" and walked away. Pt currently asleep with noted sleep time 2130. Q15 min safety checks per protocol. [facility] sleep, behavior, safety Addendum: 02/19/16 at 0446 by CALI RODRIGUEZ RN Noc shift pt slept well through the night, total of 7.5 hrs of sleep with no distress. Monitored Q15 min checks completed.
--- NOTE | 2016-02-19 00:54 | NUR ---
Observations 1900 to 0700 Pt shows signs of confusion and schizophrenia. Pt walked the halls for some of the night. Pt words and sentences don't make sense all the time. Pt first appeared asleep at 21:30 and was observed every 15 minutes through the night as directed.
--- NOTE | 2016-02-19 14:08 | NUR ---
Nursing Note [id number] Behavior S/O: Pt pleasant & cooperative with cares & medications. Pt pacing halls most of the day. Good appetite. Conversation tracking clear & organized with superficial communication. Pt attended all groups today. A: Mood is stable. P: Provide supportive environment. Monitor medications & effects.
--- NOTE | 2016-02-19 16:22 | PCM.PNPSY ---
Subjective Date of Service Feb 19, 2016 Subjective The patient is concerned about his discharge date and that if the physician were to change, they may wish to detain him to [facility]. He is concerned that he will have to see Dr. Ramos in the forensic unit at [facility]. The patient reports that he feels that he should not have been detained as he was doing well upon admission to [facility]. We again discussed his behavior prior to admission and again suggested using long- acting Depakote, which the patient declined. He stated that he would like to be discharged early next week if possible. No new medical issues or side effects. Sleep: 7.5 hours Appetite: "Good" Suicidal and homicidal ideation: Denies Auditory hallucinations/Visual hallucinations: Denies Other Psychotic Symptoms: Still perseverating on his rights, mistreatment by psychiatrists, case filler, etc. Current Medications Current Medications Divalproex Sodium 750 mg HS PO Last administered on 02/18/16at 20:38; Admin Dose 750 MG; Start 02/18/16 at 21:00 Mental Status Exam Appearance: Neat/well groomed Attitude: Cooperative Behavior: Other (overly concerned with injustices. Patient still speaking to this video game script writer approximately 1-1.5 feet away.) Affect: Labile (but improving) Mood: Irritable (mild) Thought Process/Associations: Circumstantial Speech Production: Abundant Speech Rate: Pressured (mildly) Speech Articulation: Normal Thought Content: Suspicious, Perseveration Danger to Self/Suicidal Ideati: None Danger to Others: None Hallucinations: Auditory (Denies), Visual (Denies) Consciousness: Alert Orientation: Person, Place, Date, Situation Memory: Grossly Intact Estimate Intellectual Function: Average Attention/Concentration & Cogn: Impaired Insight: Limited Judgement: Poor Result Diagram: 02/18/1682402/18/16824 Mental Health Plan The patient is a 55-year-old male with a long history of mental health who reports a diagnosis of bipolar disorder, although his cognitive impairment would suggest schizoaffective disorder, bipolar type, and this appears to be the diagnosis from [facility] and from [facility]. Review of [facility] discharge summary today indicates he did well on risperidone 4 mg Depakote 750 mg. On admission, the patient has reported that he has been refusing Depakote and has not been taking risperidone as prescribed. Unfortunately there is no Depakote level from the emergency department to verify this assertion one way or the other. The patient at the time of admission was unwilling to take Depakote and was somewhat irritable and aggressive with staff the previous day regarding medication. The patient was increased to 4 mg of risperidone and Depakote 500 mg was initiated. The patient expressed concern around blood draws and needles but understood the need for establishing a therapeutic level of his medication. He was aware that he was on a higher dose of Depakote in the past. His valproic acid blood level was 41 and the patient agreed to increase his dose to 750 mg and recheck his blood work in 3-4 days. If stable the patient may be appropriate to be discharged early next week after reinstatement of his less restrictive order [place] I: 1. Schizoaffective disorder, bipolar type 2. Amphetamine use disorder, in remission. 3. Alcohol use disorder. [place] II: Deferred. [place] III: Subungual pedal fungal infection. [place] IV: Moderate with chronic mental illness, difficulties with housing and mental health team. [place] V: Global Assessment of Functioning of 35. Medications Risperidone 4 mg by mouth nightly Valproic acid 750 mg by mouth nightly Clonazepam 2 mg by mouth nightly, currently refusing. Treatments 1. The patient is provided with a safe environment with no additional precautions necessary at this time. 2. The patient is encouraged to participate in group and milieu therapy. 3. The patient will meet with the treatment team on a daily basis. 4. The patient will be continued on the above medications. 5. Anticipated length of stay is two weeks. 6. The patient will need to be assessed for reinstatement of his less restrictive order. 7. Valproic acid level on 02/22/16 Curt Mccann MD Feb 19, 2016 16:22
[2016-02-19 17:35] VITALS: BP 148/82; PULSE 86; RESP 16
--- NOTE | 2016-02-19 17:47 | NUR ---
[facility] Day Shift Pt affect and behavior unchanged from previous shifts. Pt maintained behavioral control throughout the shift. Pt affect appears mostly flat, somewhat brighter when engaged with staff and peers. Pt spends most of the shift pacing the unit or resting/sleeping in his room. Pt is appropriate with staff and peers when active on the unit. Pt attended community meeting in the AM. Pt participated in group patio activities throughout the shift. Pt attended all meals and ate approx 100% of all meals.
[2016-02-19] MEDS: LORazepam 1 mg Tablet PO PRN (20:24)
[2016-02-19] MEDS: risperiDONE 2 mg Tablet PO SCH (20:24)
--- NOTE | 2016-02-20 04:35 | NUR ---
Nursing Note [id number] Pt requested his 2mg Klonopin that had been Dc'd. Pt was offered ativan 2mg or Klonopin 1mg Pt became angry. 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 Pt eventually accepted the 2mg ativan after much complaining. Pt went to room shortly after and was noted asleep 2130. q15 min safety checks per protocol , no distress noted. Pt has slept a total of 7 hr sleep uninterrupted. [facility] sleep, behavior, safety
--- NOTE | 2016-02-20 05:40 | NUR ---
Pt pacing floors while awake. He appeared and voiced upset/anger at being here and being used because of being a Medicare Pt. Asleep at 2130. Pt observed every 15 minutes as ordered.
[2016-02-20 11:34] VITALS: BP 111/73; PULSE 68; RESP 16
--- NOTE | 2016-02-20 14:49 | PCM.PNPSY ---
Subjective Date of Service Feb 20, 2016 Subjective The patient is a 55yo male who reports that he feels ready for dc home to his apartment in [place]. He shared that his rent is due Wednesday, he has a car payment to make, and needs to check on his cat. He expressed 2-3 times that he should not have been admitted in the first place, sharing that he feels he was set up by his clinical case manager to have to spend the Holidays in the hospital: he did not take the 500mg am Depakote in his pill box which he feels was not his prescribed medication and was too much. This is an improvement from his original complaint on admit that we were putting Depakote in all his medications. He is happy with the current medications and is agreeable to continuing on this regime on discharge. No side effect complaints. Sleep: 7-8 hours Appetite: Good appetite, notices others getting larger portions, but is fine since he can get an additional portion of milk later Suicidal and homicidal ideation: denies Auditory hallucinations: denies Visual hallucinations: denies Other Psychotic Symptoms: fixed idea that he was victimized by his caregivers at home Anxiety: "Really Relaxed." Depression: "Just a little for having to be in the hospital." Current Medications Current Medications Divalproex Sodium 750 mg HS PO Last administered on 02/19/16at 20:20; Admin Dose 750 MG; Start 02/18/16 at 21:00 Risperidone 4 mg by mouth nightly Clonazepam 0.5-1.0 mg by mouth q4h PRN Lorazepam 2mg by mouth q4h PRN Mental Status Exam Vital Signs Vital Signs Date Time Temp Pulse Resp B/P Pulse Ox O2 Delivery O2 Flow Rate FiO2 02/20/16 11:34 36.5 68 16 111/73 Appearance: Neat/well groomed Attitude: Cooperative Behavior: Other (would complain without ceasing about being victimized but is easily redirected) Affect: Labile (but improving) Mood: Euthymic Thought Process/Associations: Circumstantial Speech Production: Abundant Speech Rate: Pressured (mildly) Speech Articulation: Normal Thought Content: Suspicious, Perseveration Danger to Self/Suicidal Ideati: None Danger to Others: None Hallucinations: Auditory (Denies), Visual (Denies) Consciousness: Alert Orientation: Person, Place, Date, Situation Memory: Grossly Intact Estimate Intellectual Function: Average Attention/Concentration & Cogn: Impaired Insight: Limited Judgement: Limited Result Diagram: 02/18/1625 02/18/16824 Mental Health Plan The patient is a 55-year-old male with a long history of mental health problems who reports a diagnosis of bipolar disorder, although his cognitive impairment would suggest schizoaffective disorder, bipolar type, and this appears to be the diagnosis from [facility] and from [facility]. Review of [facility] discharge summary today indicates he did well on risperidone 4 mg Depakote 750 mg. On admission, the patient has reported that he has been refusing Depakote and has not been taking risperidone as prescribed. Unfortunately there is no Depakote level from the emergency department to verify this assertion one way or the other. The patient at the time of admission was unwilling to take Depakote and was somewhat irritable and aggressive with staff the previous day regarding medication. The patient was increased to 4 mg of risperidone and Depakote 500 mg was initiated. The patient expressed concern around blood draws and needles but understood the need for establishing a therapeutic level of his medication. He was aware that he was on a higher dose of Depakote in the past. His valproic acid blood level was 41 on 02/17, and the patient agreed to increase his dose to 750 mg and recheck his blood work in 3-4 days. If stable the patient may be appropriate to be discharged following lab results or early next week. [place] I: 1. Schizoaffective disorder, bipolar type 2. Amphetamine use disorder, in remission. 3. Alcohol use disorder. [place] II: Deferred. [place] III: Subungual pedal fungal infection. [place] IV: Moderate with chronic mental illness, difficulties with housing and mental health team. [place] V: Global Assessment of Functioning of 35. Medications Risperidone 4 mg by mouth nightly Valproic acid 750 mg by mouth nightly Clonazepam 0.5-1.0 mg by mouth q4h PRN Lorazepam 2mg by mouth q4h PRN Treatments 1. The patient is provided with a safe environment with no additional precautions necessary at this time. 2. The patient is encouraged to participate in group and milieu therapy. 3. The patient will meet with the treatment team on a daily basis. 4. The patient will be continued on the above medications. 5. Anticipated length of stay is two weeks. 6. The patient will need to be assessed for reinstatement of his less restrictive order. 7. Valproic acid level on 02/22/16 Sundar Sheets DO Feb 20, 2016 14:49 Curt Mccann MD Feb 20, 2016 15:48
--- NOTE | 2016-02-20 16:36 | NUR ---
Nursing Dayshift: S: "I might be leaving Wednesday. I need to talk to someone about a train ticket to [place]." O: Patient states he feels ready to go soon. Has been out of his room much of the shift. Interactive on approach. Ambulating squires frequently throughout shift. Eating well at meals. Cordial to staff. Anxiety "some". Denies depression, harmful thoughts, and hallucinations. A: Interactive. Cooperative. P: CPOC. Monitor mood and behavior. Addendum: 02/20/16 at 1657 by JOSÉ PHELAN RN Amended: Links added.
[2016-02-20] MEDS: risperiDONE 2 mg Tablet PO SCH (20:28)
--- NOTE | 2016-02-20 20:43 | NUR ---
Observations 0900 to 2130 Pt affect and mood remained the same as previous days. Pt was pleasant, polite and cooperative. Pt speech and eye contact was ok. Pt was minimally social with staff and select peers when approached. Pt paced the hallway and/or rested in his room. Pt maintained behavior control throughout the shift. Pt went outside on patio with staff. Pt attended meals in the D.R. and ate 75% of breakfast, 100% of lunch and 100% of dinner. Pt ate snack. Pt attended wrap up group and stated that met his goal for the day. Pt rated her mood and day a 7/10 with 10 being the best. Pt went out on patio with staff to get some fresh air. Pt was observed every 15 minutes throughout the shift as ordered.
--- NOTE | 2016-02-21 05:41 | NUR ---
Nursing Noc. Pt presents A+O this shift, denies a/v hallucinations, Reports he is ready to go home. Pt also reports now that he is on medication he doesn't have his ability to create poetry. Pt was able to quote previous poetic thoughts. Pt out in common area for most of evening interaction with staff and other patients. Pt participated in group, was noted to go to sleep by Q15 minute safety checks at 2200 and remained asleep throughout the shift. Continuing to monitor medication effectiveness, mood, behavior, emotional state and sleep times.
--- NOTE | 2016-02-21 05:46 | NUR ---
Pt Isolated to room most of shift, did walk the halls some. Asleep at 2200. Pt observed every 15 minutes as ordered.
--- NOTE | 2016-02-21 12:16 | NUR ---
Nursing note Pt. denies feelings of anxiety, depression, self harm, or hallucinations. Pt. seems a little intense during conversation, but responds appropriately. Paces the halls frequently for exercise. No questions or concerns.
--- NOTE | 2016-02-21 16:44 | PCM.PNPSY ---
Subjective Date of Service Feb 21, 2016 Subjective The patient is a 55yo male who reports that he feels ready for discharge home to his apartment in [place]. He was understanding and accepting when we pointed out that he will be better off to let go of pursuing the idea that someone set him up to have to be in the hospital by giving him the wrong medication in his box. He is happy with the current medications and is agreeable to continuing on this regime on discharge. No side effect complaints. He wants to be sure of the arrangements for leaving here and for transport back to [place] on Wednesday. Sleep: 7-8 hours Appetite: very good, no mention of deprivation today Suicidal and homicidal ideation: denies Auditory hallucinations: denies Visual hallucinations: denies Other Psychotic Symptoms: denies Anxiety: denies Depression: denies Current Medications Risperidone 4 mg by mouth nightly Valproic acid 750 mg by mouth nightly Clonazepam 0.5-1.0 mg by mouth q4h PRN Lorazepam 2mg by mouth q4h PRN Mental Status Exam Appearance: Neat/well groomed Attitude: Cooperative Behavior: Overtly anxious Affect: Restricted Mood: Anxious Thought Process/Associations: Circumstantial Speech Production: Normal Speech Rate: Pressured (mildly) Speech Articulation: Normal Thought Content: Suspicious, Perseveration Danger to Self/Suicidal Ideati: None Danger to Others: None Hallucinations: Auditory (Denies), Visual (Denies) Consciousness: Alert Orientation: Person, Place, Date, Situation Memory: Grossly Intact Estimate Intellectual Function: Average Attention/Concentration & Cogn: Impaired Insight: Limited Judgement: Limited Result Diagram: 02/18/16 0825 02/18/16 0825 Mental Health Plan The patient is a 55-year-old male with a long history of mental health problems who reports a diagnosis of bipolar disorder, although his cognitive impairment would suggest schizoaffective disorder, bipolar type, and this appears to be the diagnosis from [facility] and from [facility]. Review of [facility] discharge summary indicates he did well on risperidone 4 mg Depakote 750 mg. On admission, the patient has reported that he has been refusing Depakote and has not been taking risperidone as prescribed. Unfortunately there is no Depakote level from the emergency department to verify this assertion one way or the other. The patient at the time of admission was unwilling to take Depakote and was somewhat irritable and aggressive with staff the previous day regarding medication. The patient was increased to 4 mg of risperidone and Depakote 500 mg was initiated. The patient expressed concern around blood draws and needles but understood the need for establishing a therapeutic level of his medication. He was aware that he was on a higher dose of Depakote in the past. His valproic acid blood level was 41 on 02/17, and the patient agreed to increase his dose to 750 mg and recheck his blood work on Wednesday before discharge on Wednesday. Today, the patient remains perseverative on discharge, but redirects more easily and appears to be approaching baseline. [place] I: 1. Schizoaffective disorder, bipolar type 2. Amphetamine use disorder, in remission. 3. Alcohol use disorder. [place] II: Deferred. [place] III: Subungual pedal fungal infection. [place] IV: Moderate with chronic mental illness, difficulties with housing and mental health team. [place] V: Global Assessment of Functioning of 35. Medications Risperidone 4 mg by mouth nightly Valproic acid 750 mg by mouth nightly Clonazepam 0.5-1.0 mg by mouth q4h PRN Lorazepam 2mg by mouth q4h PRN Treatments 1. The patient is provided with a safe environment with no additional precautions necessary at this time. 2. The patient is encouraged to participate in group and milieu therapy. 3. The patient will meet with the treatment team on a daily basis. 4. The patient will be continued on the above medications. 5. Discharge is anticipated on 02/23/16 6. The patient will discharged on his existing less restrictive order. 7. Patient c/o some lower back pain bilaterally, will check UA. 8. CBC, CMP, Valproic acid level on 02/22/16 Attending Statement Have seen patient with Dr. Sheets and agree with findings, recommendations and additional information. Sundar Sheets DO Feb 21, 2016 16:44 Curt Mccann MD Feb 21, 2016 17:59
[2016-02-21 17:59] VITALS: BP 121/74; PULSE 63; RESP 18
--- NOTE | 2016-02-21 18:02 | NUR ---
Nursing Note Eves: Patient ate well at dinner. Ambulating squires prior to and after eating. C/O "kidney stones" lower back pain. MD alerted. Interactive on approach.
--- NOTE | 2016-02-21 18:54 | NUR ---
[facility] Day Shift Pt affect and behavior unchanged from previous shifts. Pt maintained behavioral control throughout the shift. Pt affect appears mostly flat, somewhat brighter when engaged with staff and peers. Pt spends most of the shift pacing the unit or resting/sleeping in his room. Pt is appropriate with staff and peers when active on the unit. Pt did not attend community meeting. Pt participated in group patio activities throughout the shift. Pt attended all meals and ate approx 100% of all meals.
[2016-02-21] MEDS: risperiDONE 2 mg Tablet PO SCH (20:57)
--- NOTE | 2016-02-21 22:25 | NUR ---
Case Management/Counselor: S: "Am I discharging Wednesday or is that a lie?" O: Patient slept 7 to 8 hours last night per staff. Patient denies S/I and H/I. He denies auditory and visual hallucinations. Depression is 0/10 and anxiety is 0/10. Patient is scheduled to take the [employer] bus back to [place], [place], Wednesday morning. He will leave [facility] at 7:45am via taxi. A: Patient is cooperative, restricted affect, anxious, pressured speech, suspicious, limited insight, limited judgment. P: Follow care plan, coordinate out-patient providers, coordinate transportation back to [place], [place].
--- NOTE | 2016-02-22 05:41 | NUR ---
Pt Isolated to room most of shift, did walk the halls some and attend group. Asleep at 2145. Pt observed every 15 minutes as ordered.
[2016-02-22 11:45] VITALS: BP 142/79; PULSE 67; RESP 20
--- NOTE | 2016-02-22 14:29 | NUR ---
[id number]. nurs. S: "I never had schizophrenia, I don't have voices I just get angry and verbally threatening when some one says they are going to shoot me I say I will shoot them first"... I really was taking my meds they just added another depakote tablet that I gave back to them in pill box....I am looking forward to going home and hope don't ever need to come back..." O: Pt reporting no depression, no anxiety, no hallucinations and "no delusions" pt stating has lots of harassment charges in past and current re. losing verbal control because he is afraid that police might shoot him, as more dangerous than they used to be, but states he would never threaten women police. Pt eager to go home, to own residence and will leave by cab at 8am to catch [employer] to [place] at 9am. A:Pt exhibiting some anxiety re. all dc plans being in place. Feels stable on current med regimen. Otherwise eager to be home. P:CNCP
[2016-02-22 14:49] LABS: BASOPHILS % (AUTO) 0.4 % (0-3); EOSINOPHILS % (AUTO) 3.3 % (0-5); MONOCYTES % (AUTO) 5.9 % (4-12); Mean Corpuscular Hemoglobin 30.6 pg (27.0-35.0); Mean Corpuscular Volume 86.7 fL (81-100); NEUTROPHILS % (AUTO) 63.5 % (40-74); Platelet Count 237 bil/L (150-400)
--- NOTE | 2016-02-22 19:08 | PCM.PNPSY ---
Subjective Date of Service Feb 22, 2016 Subjective The patient reports that he is doing "pretty good, [place] can be a mood stabilizer." The patient is looking forward to discharge on Wednesday and will have a week's supply of medications to take with him as they were filled at an outside pharmacy for him to take with him. The patient will be leaving in the morning via [employer] to [place]. Phlebotomy was unable to draw his blood until this afternoon, but despite this his Depakote level was 47 indicating that it is in the therapeutic range. No side effect complaints. The patient continued to complain of some lower back pain but had no tenderness over the kidneys or along the spine but did have some muscle tenderness. BUN was slightly elevated , but urinalysis was not available Sleep: 7.5+ hours Appetite: "Good" Suicidal and homicidal ideation: denies Auditory hallucinations: denies Visual hallucinations: denies Other Psychotic Symptoms: denies Anxiety: "Just excitement" Depression: "Really happy" Mental Status Exam Vital Signs Vital Signs Date Time Temp Pulse Resp B/P Pulse Ox O2 Delivery O2 Flow Rate FiO2 02/22/16 11:45 35.7 67 20 142/79 Appearance: Neat/well groomed Attitude: Cooperative Behavior: Overtly anxious Affect: Well Modulated/Appropriate Mood: Anxious Thought Process/Associations: Goal Directed, Circumstantial Speech Production: Normal Speech Rate: Normal Speech Articulation: Normal Thought Content: Perseveration Danger to Self/Suicidal Ideati: None Danger to Others: None Hallucinations: Auditory (Denies), Visual (Denies) Consciousness: Alert Orientation: Person, Place, Date, Situation Memory: Grossly Intact Estimate Intellectual Function: Average Attention/Concentration & Cogn: Impaired Insight: Limited Judgement: Limited Result Diagram: 02/22/16 1416 02/22/16 1416 Mental Health Plan The patient is a 55-year-old male with a long history of mental health problems who reports a diagnosis of bipolar disorder, although his cognitive impairment would suggest schizoaffective disorder, bipolar type, and this appears to be the diagnosis from [facility] and from [facility]. Review of [facility] discharge summary indicates he did well on risperidone 4 mg Depakote 750 mg. On admission, the patient has reported that he has been refusing Depakote and has not been taking risperidone as prescribed. Unfortunately there is no Depakote level from the emergency department to verify this assertion one way or the other. The patient at the time of admission was unwilling to take Depakote and was somewhat irritable and aggressive with staff the previous day regarding medication. The patient was increased to 4 mg of risperidone and Depakote 500 mg was initiated. The patient expressed concern around blood draws and needles but understood the need for establishing a therapeutic level of his medication. He was aware that he was on a higher dose of Depakote in the past. His valproic acid blood level was 41 on 02/17, and the patient agreed to increase his dose to 750 mg and recheck his blood work on Wednesday before discharge on Wednesday. Today, the patient remains perseverative on discharge, but redirects more easily and appears to be at baseline. The patient's Depakote level although 47 was drawn 5 hours late and is therefore anticipated to be in the therapeutic range. [place] I: 1. Schizoaffective disorder, bipolar type 2. Amphetamine use disorder, in remission. 3. Alcohol use disorder, in partial remission. [place] II: Deferred. [place] III: Subungual pedal fungal infection. [place] IV: Moderate with chronic mental illness, difficulties with housing and mental health team. [place] V: Global Assessment of Functioning of 40. Medications Risperidone 4 mg by mouth nightly Valproic acid 750 mg by mouth nightly Clonazepam 0.5-1.0 mg by mouth q4h PRN Lorazepam 2mg by mouth q4h PRN Treatments 1. The patient is provided with a safe environment with no additional precautions necessary at this time. 2. The patient is encouraged to participate in group and milieu therapy. 3. The patient will meet with the treatment team on a daily basis. 4. The patient will be continued on the above medications. 5. Discharge is anticipated on 02/23/16 6. The patient will discharged on his existing less restrictive order. 7. Patient c/o some lower back pain bilaterally, will check UA. 8. CBC, CMP, Valproic acid level on 02/22/16 Curt Mccann MD Feb 22, 2016 19:08
--- NOTE | 2016-02-22 19:15 | PCM.DIMED ---
Discharge Instructions Date of Service Feb 22, 2016 Dates of Hospitalization Feb 07, 2016 at 16:46 Discharge Diagnosis Discharge Diagnosis [place] I: 1. Schizoaffective disorder, bipolar type 2. Amphetamine use disorder, in remission. 3. Alcohol use disorder, in partial remission. [place] II: Deferred. [place] III: Subungual pedal fungal infection. [place] IV: Moderate with chronic mental illness, difficulties with housing and mental health team. [place] V: Global Assessment of Functioning of 45. Medication Instructions Have you her Depakote trough level rechecked, as you are most recent level was 5 hours after trough. If you are switched to Depakote ER, you should take 2- 500 mg tablets. Test Results Laboratory Tests 72 Hours Test 02/21/16 20:03 02/22/16 14:16 Hold Urine Received (Received) White Blood Count 7.7th/mm3 (3.8-10.1) Red Blood Count 4.51mil/mm3 (4.40-5.80) Hemoglobin 13.8g/dL (13.8-17.2) Hematocrit 39.1% (41.0-50.0) Mean Corpuscular Volume 86.7fL (81-100) Mean Corpuscular Hemoglobin 30.6pg (27.0-35.0) Mean Corpuscular Hemoglobin Concent 35.3% (32.0-37.0) Red Cell Distribution Width 11.7% (12.3-15.4) Platelet Count 237bil/L (150-400) Neutrophils (%) (Auto) 63.5% (40-74) Lymphocytes (%) (Auto) 26.6% (14-46) Monocytes (%) (Auto) 5.9% (4-12) Eosinophils (%) (Auto) 3.3% (0-5) Basophils (%) (Auto) 0.4% (0-3) Sodium Level 139mEq/L (134-144) Potassium Level 4.6mEq/L (3.5-5.2) Chloride Level 99mEq/L (97-108) Carbon Dioxide Level 27mmol/L (18-29) Blood Urea Nitrogen 25mg/dL (6-24) Creatinine 0.85mg/dL (0.76-1.27) Estimat Glomerular Filtration Rate 99mL/min (>59) Glucose Level 90mg/dL (60-99) Calcium Level 9.7mg/dL (8.5-10.1) Total Bilirubin 0.4mg/dL (0.0-1.2) Aspartate Amino Transf (AST/SGOT) 21U/L (0-50) Alanine Aminotransferase (ALT/SGPT) 18U/L (0-44) Alkaline Phosphatase 67U/L (25-150) Total Protein 7.7g/dL (6.4-8.4) Albumin 4.3g/dL (3.4-5.0) Valproic Acid (Depakene) Level 47ug/mL (50-125) Diet No restrictions Activity No restrictions Patient Instructions Should you have any thoughts of harming yourself or others, please call the crisis line, your provider, 911, or go to the nearest Emergency Department. Do not change or discontinue your medications without discussing with your provider. You have been given a prescription for 7 days supply of your medication ( please note, you have only received 20, 250 mg Depakote tablets, instead of 21) Follow-up plan Provider follow-up: LIBBY Holloway on 02/25/2016 at [address] [place], [place], [address] Curt Mccann MD Feb 22, 2016 19:15
[2016-02-22] MEDS ORDERED: DEP500A PO (19:19)
[2016-02-22] MEDS ORDERED: KLO1T PO (19:19)
[2016-02-22] MEDS: risperiDONE 2 mg Tablet PO SCH (20:25)
--- NOTE | 2016-02-22 21:05 | NUR ---
OBSERVATIONS 0900 TO 2130 Pt paced most of the shift, socialized with staff and peers at various times throughout the day. Expressed doubt regarding his discharge and frustration with things not getting done when they are supposed to. Upon reassurance that his discharge would go as planned, pt mood brightened and became more positive. Maintained Q15 safety checks as directed.
[2016-02-22] MEDS: LORazepam 1 mg Tablet PO PRN (22:03)
--- NOTE | 2016-02-23 05:40 | NUR ---
Nursing Noc Pt eager to discharge in morning at 0800 for taxi pickup and transfer to train. Am meal to be ordered early, Patient asked to be awakened at 0630 to prepare. Valproic level slightly low at 47. Continuing to monitor safety, mood, behavior, emotional state and medications.
--- NOTE | 2016-02-23 07:52 | NUR ---
[id number]. Discharge note. Pt reporting readiness for discharge, organised and attentive to details of planning . Pt has depakote and risperdal medication provided and prescription for klonapin with him. Pt completed safety plan has train ticket and belongings. Pt with bright affect, verbalizing understanding and intention to follow med plan and f/u with outpt apts. Pt with bright affect given early breakfast and has sack lunch for lengthy train journey. Pt discharged by cab to train station at 0755.
--- NOTE | 2016-02-23 15:08 | NUR ---
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 S.:"I slept real good last night. I'm ready to go! Did you call a cab already?" O.: met with pt. very early in the morning. He completed Safety plan. He was anxious about his trip back home. He slept well last night. He denied SI/HI, denied AH/VH, denied paranoid/delusional thoughts, denied depression or anxiety. "I'm just very excited about going home. I hope everything will go well." He has follow up appt. for meds with LIBBY Grimm on 2016 @ 10:00 am @ [facility] in [place] ([phone]). Brand Inspector called [employer] and confirmed pt.'s ride to the train station at 8:00 am today for a train @ 09:02 from [facility] to [place]. A.: pt. is cooperative, pleasant, anxious about discharge. P.: monitor behavior, follow care plan.
--- NOTE | 2016-02-23 18:22 | PCM.DC.MED ---
Discharge Summary Date of Service Feb 23, 2016 Dates of Hospitalization Date of Hospital Admission Feb 07, 2016 at 16:46 Date of Discharge: Feb 23, 2016 Providers: Admitting Physician: Silvio Rivera MD Primary Care Physician: [place] Attending Physician: Silvio Rivera MD Diagnosis at Time of Discharge Diagnosis at Time of Discharge [place] I: 1. Schizoaffective disorder, bipolar type 2. Amphetamine use disorder, in remission. 3. Alcohol use disorder, in partial remission. [place] II: Deferred. [place] III: Subungual pedal fungal infection. [place] IV: Moderate with chronic mental illness, difficulties with housing and mental health team. [place] V: Global Assessment of Functioning of 45. Brief History IDENTIFYING DATA: The patient is a 55-year-old male with a previous diagnosis of bipolar disorder manic with psychotic features who presents on a petition for revocation of a 180-day less restrictive order. CHIEF COMPLAINT: "I am not here on a [place] [facility] hold. I violated my less restricted order." HISTORY OF PRESENT ILLNESS: According to the mental health professional documentation from affidavits from [facility] the patient was apparently medication nonadherent, particularly with Depakote, and was defensive , agitated, and irritable, and had a pressured affect and speech. The patient was upset about [place], his energy attorney, and the Reliable real property evaluator, faraz, and Kareem Kenney. The patient also admitted to drinking wine. They were able to successfully deescalate the patient, but he reported to them that he would "[place] [facility] [place] [facility] [place] [facility]." At the [facility] he became aggressive and agitated and received 4 mg of intramuscular Ativan and 20 mg of intramuscular Geodon with "expected and appropriate response." On review he appears to have had three injections of Geodon over the course of two days. The patient spit in eye of staff at one point and hepatitis and HIV screens were ordered. On the day of admission the patient declined interview and requested that it occur the day following. On presentation today he states that medications are "experimental poisons." He also makes a difference between psychiatrists who he views as therapist and shrinks who he views as "drain you with medicine." He states that he has a case pending in [place] [address] regarding a harassment charge from December 05 and reports that his software development project manager as noted above was jealous of not getting his SSI benefits and so took it out on the patient. Sleep, appetite, and energy were reported as normal. PAST PSYCHIATRIC HISTORY: Inpatient: The patient has had multiple inpatient hospitalizations and has had at least 16 [facility] admissions both civilly and forensic combined. His last inpatient hospitalization was at [facility] for reportedly 41 days and the patient reports he was released after Thanksgiving. He reports his 1st inpatient hospitalization was at the age of 28. Outpatient: He is followed by [facility] in the [place] area and his watch case polisher is Isabela Ken and his nurse is Rachael. He reports a diagnosis of bipolar disorder, but there is also diagnosis of schizoaffective disorder. The patient appears to disagree with the diagnosis of schizophrenia or schizoaffective disorder. PAST MEDICATIONS: Have included Klonopin, risperidone, and Depakote, and according to [facility], he has typically been on 5-6 mg of risperidone and approximately 1750 of Depakote as well as Klonopin. He denies any prior suicide attempt history Hospital Course The patient was admitted and initially only accepted risperidone 3 mg with clonazepam 2 mg nightly. He did agree to increase risperidone to 4 mg and eventually to accepting Depakote 500 mg. His valproic acid level on 02/18/2016 was 41 and the patient agreed to increase his dose to 750 mg. He was unwilling to take the extended release formulation. Nevertheless the patients paranoia and behavior markedly improved over the next few days such that he was pleasant cooperative and forward looking. He no longer talked about feeling slighted or problems with his mental health care team in [place]. Follow-up valproic acid level unfortunately was drawn at 1416 hrs. but nevertheless was 47. Should the patient be switched to the extended release formulation, he should be placed on 1000 mg. If he refuses to do so, it is recommended that he stay on the delayed release formulation as 750 mg extended release appears to be insufficient to manage his symptoms. On 02/22/2016, the patient was reporting his mood was pretty good, "[place] can be a mood stabilizer. Sleep was reported as 7.5 hours, "pretty good" and appetite was reported as "good" His anxiety was reported as "Just excitement" and depression as "Really happy". He denied auditory or visual hallucinations and any thought, intent or plan of hurting himself or others. He denied medication side effects. Exam Vital Signs (Last) Date Time Temp Pulse Resp B/P Pulse Ox O2 Delivery O2 Flow Rate FiO2 02/22/16 11:45 35.7 67 20 142/79 Exam Discharge Mental Status Exam Appearance: Neat/well groomed Attitude: Cooperative Behavior: Overtly anxious Affect: Well Modulated/Appropriate Mood: Anxious Thought Process/Associations: Goal Directed, Circumstantial Speech Production: Normal Speech Rate: Normal Speech Articulation: Normal Thought Content: Perseveration Danger to Self/Suicidal Ideation: None Danger to Others: None Hallucinations: Auditory (Denies), Visual (Denies) Consciousness: Alert Orientation: Person, Place, Date, Situation Memory: Grossly Intact Estimate Intellectual Function: Average Attention/Concentration & Cognition: Impaired Insight: Limited Judgement: Limited Physical Examination: AIMS Score 0; No dystonia or cogwheeling Test 02/21/16 20:03 02/22/16 14:16 Hold Urine Received (Received) White Blood Count 7.7th/mm3 (3.8-10.1) Red Blood Count 4.51mil/mm3 (4.40-5.80) Hemoglobin 13.8g/dL (13.8-17.2) Hematocrit 39.1% (41.0-50.0) Mean Corpuscular Volume 86.7fL (81-100) Mean Corpuscular Hemoglobin 30.6pg (27.0-35.0) Mean Corpuscular Hemoglobin Concent 35.3% (32.0-37.0) Red Cell Distribution Width 11.7% (12.3-15.4) Platelet Count 237bil/L (150-400) Neutrophils (%) (Auto) 63.5% (40-74) Lymphocytes (%) (Auto) 26.6% (14-46) Monocytes (%) (Auto) 5.9% (4-12) Eosinophils (%) (Auto) 3.3% (0-5) Basophils (%) (Auto) 0.4% (0-3) Sodium Level 139mEq/L (134-144) Potassium Level 4.6mEq/L (3.5-5.2) Chloride Level 99mEq/L (97-108) Carbon Dioxide Level 27mmol/L (18-29) Blood Urea Nitrogen 25mg/dL (6-24) Creatinine 0.85mg/dL (0.76-1.27) Estimat Glomerular Filtration Rate 99mL/min (>59) Glucose Level 90mg/dL (60-99) Calcium Level 9.7mg/dL (8.5-10.1) Total Bilirubin 0.4mg/dL (0.0-1.2) Aspartate Amino Transf (AST/SGOT) 21U/L (0-50) Alanine Aminotransferase (ALT/SGPT) 18U/L (0-44) Alkaline Phosphatase 67U/L (25-150) Total Protein 7.7g/dL (6.4-8.4) Albumin 4.3g/dL (3.4-5.0) Valproic Acid (Depakene) Level 47ug/mL (50-125) Discharge Medications Discharge Medications Divalproex DR (Depakote DR) 500 Mg Tablet 750 MG PO HS Prescribed by: SILVIO RIVERA MD Risperidone (Risperidone) 4 Mg Tablet 4 MG PO HS (Reported) As needed Clonazepam (Clonazepam) 1 Mg Tablet 1 MG PO HS PRN PRN For Anxiety Prescribed by: SILVIO RIVERA MD Trazodone (Trazodone) 100 Mg Tablet 100 MG PO HS PRN PRN For Sleep (Reported) Additional med instructions Have you her Depakote trough level rechecked, as you are most recent level was 5 hours after trough. If you are switched to Depakote ER, you should take 2- 500 mg tablets. The patient was discharged with one week's supply of Depakote and Risperdal and a prescription for clonazepam. Followup Plan Disposition: No indication for further group home at this time, patient released from hold on a his existing 180 day less restrictive order this AM, returning to [place]. The patient verbally consented to take the prescribed medications. The patient verbally expressed understanding of the risks, benefits, alternative treatment options, and risks of not taking the prescribed medication. The patient verbally expressed understanding of the medication instructions, that he will adhere to the prescribed medication, and that he will go to all aftercare scheduled appointments. Follow-up plan Provider follow-up: LIBBY Holloway on 02/25/2016 at [address], [address] Discharge Diet: No restrictions Discharge Activity: No restrictions Patient Instructions Should you have any thoughts of harming yourself or others, please call the crisis line, your provider, 911, or go to the nearest Emergency Department. Do not change or discontinue your medications without discussing with your provider. You have been given a prescription for 7 days supply of your medication ( please note, you have only received 20, 250 mg Depakote tablets, instead of 21) Silvio Rivera MD Feb 23, 2016 18:22
== END 2016-02-23 07:55 | disposition home or self-care (01) | DRG 885 ==
LOC: MHC 16:46
PROVIDERS: ADMIT Psychiatry & Neurology Psychiatry; ATTEND Psychiatry & Neurology Psychiatry
DX: F25.0 Schizoaffective disorder, bipolar type (principal); Z72.89 Other problems related to lifestyle; B35.3 Tinea pedis